=== PATIENT | male | born 1945 | race Caucasian/White ===

== ENCOUNTER 2019-10-07 18:40 | Emergency (ER) | payer MEDICARE, SELFPAY ==
--- NOTE | 2019-10-07 18:43 | ED_ITS ---
Entered by Joya Wong, acting as scribe for Yosef Glass MD HPI - Chest Pain General: Chief Complaint: Chest Pain Stated Complaint: SVT/ HYPOTENSION Time Seen by Provider: 10/07/19 18:44 Source: patient, EMS and RN notes reviewed Mode of arrival: EMS Limitations: no limitations History of Present Illness: HPI narrative: 74 yo male presents to ED with c omplaints of heart palpatations and chest discomfort. The patient said his blood pressure has been running low today (100's/60's) and his pulse has been 160-170. Associated symptoms: Reports palpitations; Deny abdominal pain, dyspnea, fever(s), nausea or vomiting Review of Systems Const: Denies: fever, chills, body aches or change in appetite Eyes: Denies: blurry vision or eye discomfort ENMT: Denies: throat pain or dental pain Card: Reports: palpitations; Denies: chest pain Resp: Denies: shortness of breath GI: Denies: abdominal pain, nausea, vomiting or diarrhea : Denies: painful urination Musc: Denies: neck pain or back pain Skin/Breast: Denies: rash Neuro: Denies: headache Psych: Denies: depression Raphael/Lymph: Denies: easy bruising All/Imm: Denies: hives PFSH ED PFSH: Social History Smoking and tobacco status: former smoker Physical Exam Const: COMMON NORMALS: no apparent distress, oriented x3 and healthy appearing HENMT: COMMON NORMALS: normocephalic and head/scalp atraumatic HEAD & SCALP: normocephalic and atraumatic Eye: COMMON NORMALS: PERRL and EOMs intact bilaterally PUPIL: Yes PERRL Neck/C-Spine: COMMON NORMALS: full ROM and supple Chest: COMMONS NORMALS: inspection of chest normal and palpation of chest normal Resp: COMMON NORMALS: normal respiratory effort, no retractions, no use of accessory muscles and clear to auscultation bilaterally AUSCULTATION: clear to auscultation bilaterally Cardio: COMMON NORMALS: regular rate, regular rhythm and no murmurs RATE: regular rate RHYTHM: regular rhythm GI: COMMON NORMALS: normal to inspection, nondistended, normoactive bowel sounds, soft to palpation, non-tender and no masses PALPATION: Yes soft Extremity: COMMON NORMALS: normal to inspection and full ROM Neuro: COMMON NORMALS: oriented x3, moves all extremities and no focal motor deficits Psych: COMMON NORMALS: mental status grossly normal, thought process normal and cooperative THOUGHT PROCESS: normal thought process Skin: COMMON NORMALS: no rashes or lesions noted and no wounds GENERAL SKIN EXAM: no rashes or lesions noted Course Vital Signs: Vital signs: Vital Signs Temperature 97.5 F L 10/07/19 18:44 Pulse Rate 92 10/07/19 19:10 Respiratory Rate 14 10/07/19 19:10 Blood Pressure 149/91 10/07/19 19:10 Pulse Oximetry 97 10/07/19 19:10 MDM - Chest Pain MDM Narrative: Medical decision making narrative: Patient presents here with SVT was converted on the way here. Patient observed here and he is been in normal sinus rhythm. Patient feels much improved and is well-appearing. Patient's lab work here is normal. Patient is stable for discharge and is to follow-up with primary care doctor in 3 to 5 days return if worsening. Lab Data: Labs: Lab Results 10/07/19 10/07/19 Range/Units 18:50 18:50 WBC 6.9 (4.0-10.0) 10^3/ uL RBC 4.34 (4.1-5.3) 10^6/u L Hgb 12.9 (11.7-16.6) g/dL Hct 39.8 L (42.0-52.0) % MCV 91.7 (80-94) fL MCH 29.7 (28.0-34.0) pg MCHC 32.4 (30.0-36.0) g/dL RDW 11.6 L (12.1-15.1) % Plt Count 283 (130-400) 10^3/c mm MPV 9.0 (7.4-10.4) fL Neut % (Auto) 71.5 % Lymph % (Auto) 15.2 % Dickinson % (Auto) 10.1 % Eos % (Auto) 2.8 % Baso % (Auto) 0.3 % Neut # (Auto) 4.9 (1.8-7.7) 10^3/u L Lymph # (Auto) 1.0 (0.8-4.8) 10^3/u L Dickinson # (Auto) 0.7 (0.2-0.9) 10^3/u L Eos # (Auto) 0.2 (0.0-0.8) 10^3/u L Baso # (Auto) 0.0 (0.0-0.1) 10^3/u L Nucleated RBC % (a uto) 0 % Nucleated RBCs # 0.0 /100WBC Sodium 137 (136-145) mmol/L Potassium 4.2 (3.5-5.1) mmol/L Chloride 100 (98-107) mmol/L Carbon Dioxide 24 (22-29) mmol/L Anion Gap 17.2 (5-19) BUN 20 (8-23) mg/dL Creatinine 1.1 (0.7-1.2) mg/dL Glucose 105 (65-115) mg/dL Calculated Osmolal ity 281 L (285-295) mOsm/k g Calcium 9.3 (8.5-10.5) mg/dL EKG Data^: EKG 1: Attestation: I personally reviewed and interpreted this EKG as follows: EKG interpretation date: 10/07/19 EKG interpretation time: 18:53 Interpretation: nsr hr [address] or t wave abnormalities qrs 74 qtc 395 Discharge Plan Discharge Patient Disposition: Home, Self-Care Clinical Impression: SVT (supraventricular tachycardia) Condition: Stable Prescriptions: No Action trazodone 50 mg tablet 50 mg PO BEDTIME RF: 0 sertraline 100 mg Tablet 100 mg PO DAILY RF: 0 pantoprazole 20 mg tablet,delayed release (DR/EC) 20 mg PO BID RF: 0 carbidopa-levodopa 25-100 mg tablet 1 tab PO DAILY RF: 0 Mi-Acid Gas Relief(simethicon) 80 mg Tablet,Chewable 80 mg PO DAILY PRN (Reason: UNKOWN) RF: 0 albuterol sulfate 90 mcg/actuation Hfa Aerosol Inhaler 2 puff INHALATION 6XD PRN (Reason: Shortness Of Breath) RF: 0 Discharge Orders: Discharge Order (Routine); Ordered 10/07/19 Ordered By: Yosef Glass Referrals: Blayne Hinojosa DO [Primary Care Provider] - 4-7 days Discharge Diet: Advance as tolerated Discharge Activity: Resume usual activity Patient Instructions: Supraventricular Tachycardia (ED) Coding Level of Care Code ED Wall Man for Chg Fwd Exam Comprehensive The documentation recorded by the Marvin trujillo Valerie R, accurately reflects the service I personally performed and the decisions made by me, Yosef Glass MD
--- NOTE | 2019-10-07 18:43 | ECG_ITS ---
Measurements Intervals [place] Rate: 85 P: 43 OK: 222 QRS: 19 QRSD: 74 T: 46 QT: 353 QTc: 420 SINUS RHYTHM WITH FIRST DEGREE AV BLOCK Compared to ECG 07/17/2019 21:31:24 First degree AV block now present Electronically Signed On 10-08-2019 7:48:36 GREENHOUSE TECHNICIAN by Esthela Raphael M.D. [email or web address]
[2019-10-07 18:44] VITALS: BP 147/90; PULSE 96; RESP 18; TEMP 36.4; O2SAT 95; BMI 20.7
[2019-10-07 18:56] VITALS: O2SAT 94
[2019-10-07 19:00] LABS: Basophils % 0.3 %; Eosinophils # 0.2 10^3/uL (0.0-0.8); Eosinophils % 2.8 %; Hematocrit 39.8 % (42.0-52.0); Hemoglobin 12.9 g/dL (11.7-16.6); Lymphocytes % 15.2 %; Mean Corpuscular HGB Conc 32.4 g/dL (30.0-36.0); Mean Corpuscular Hemoglobin 29.7 pg (28.0-34.0); Mean Corpuscular Volume 91.7 fL (80-94); Monocytes # 0.7 10^3/uL (0.2-0.9); Monocytes % 10.1 %; Neutrophils # 4.9 10^3/uL (1.8-7.7); Neutrophils % 71.5 %; Nucleated Red Blood Cells % 0 %; Platelet Count 283 10^3/cmm (130-400); Red Blood Count 4.34 10^6/uL (4.1-5.3); Red Cell Distribution Width 11.6 % (12.1-15.1); White Blood Count 6.9 10^3/uL (4.0-10.0)
--- NOTE | 2019-10-07 19:09 | PC.NURSE ---
Report received from JEAN-PAUL Lizarraga and care transferred to JEAN-PAUL Voss
[2019-10-07 19:10] VITALS: BP 149/91; PULSE 92; RESP 14; O2SAT 97
--- NOTE | 2019-10-07 19:17 | XRR_ITS ---
PROCEDURE INFORMATION: Exam: XR Chest, 1 View Exam date and time: 10/07/2019 7:18 PM Age: 74 years old Clinical indication: Other: Increased hr; Chest pain; Additional info: Cp TECHNIQUE: Imaging protocol: XR of the chest Views: 1 view. COMPARISON: CR Chest 1 [place] [id number] 07/17/2019 3:54 PM FINDINGS: Lungs: Unremarkable. No consolidation. Pleural space: There is density in the right pleura which is unchanged. No significant pleural effusion or pneumothorax. Heart/Mediastinum: Unremarkable. No cardiomegaly. Bones/joints: Unremarkable. XR/XR chest 1V portable [id number] IMPRESSION: There are no acute concerning abnormalities.
[2019-10-07 19:48] LABS: Anion Gap 17.2 (5-19); Blood Urea Nitrogen 20 mg/dL (8-23); Calcium 9.3 mg/dL (8.5-10.5); Carbon Dioxide 24 mmol/L (22-29); Chloride 100 mmol/L (98-107); Creatinine Clr Calc Pharmacy 56.5177; Glucose 105 mg/dL (65-115); Osmolality Calculated 281 mOsm/kg (285-295); Potassium 4.2 mmol/L (3.5-5.1); Sodium 137 mmol/L (136-145)
--- NOTE | 2019-10-07 20:11 | PC.PHAR ---
PT'S STATED THAT HE ALSO TAKES A BLOOD PRESSURE MEDICATION, BUT SHE DIDN'T BRING IT, AND IT WAS NOT ON HER MEDICATION LIST. [facility] BUT I HAVEN'T BEEN ABLE TO GET ONE FROM THEM YET.
[2019-10-07 20:15] VITALS: BP 149/91; PULSE 98; RESP 18; O2SAT 98
== END 2019-10-07 20:24 | disposition home or self-care (01) ==
PROVIDERS: Emergency Provider Emergency Medicine; Family Provider Family Medicine; PCP Family Medicine
DX: I47.1 Supraventricular tachycardia (principal); Z87.891 Personal history of nicotine dependence
CPT/HCPCS: 36415; 71045; 80048; 85025; 93005; 99283; 99284

== ENCOUNTER 2019-11-21 12:03 | Observation (INO) | payer OTHER, MEDICARE, SELFPAY ==
[2019-11-21 12:05] VITALS: BP 176/102; PULSE 82; RESP 18; TEMP 36.4; O2SAT 97
[2019-11-21 12:07] VITALS: BMI 22.9
--- NOTE | 2019-11-21 12:30 | ED_ITS ---
HPI - Altered Mental Status General: Chief Complaint: Altered Mental Status Stated Complaint: N/V WITH SUDDEN ONSET CONFUSION Time Seen by Provider: 11/21/19 12:12 History of Present Illness: HPI narrative: 74-year-old male presents via EMS altered mental status and nausea vomiting he states he got dizzy and began vomiting started about an hour prior to arrival. He denies headache or chest pain he said no difficulty with speech vision or swallowing he describes the symptoms as vertiginous like the world is spinning around him said he had a similar episode about 2 months ago. Review of Systems Const: Denies: fever, chills, body aches, change in appetite, fatigue or malaise ENMT: Denies: throat pain, ear pain, nasal discharge or nasal congestion Card: Denies: chest pain, edema, shortness of breath on exertion or shortness of breath when lying down Resp: Denies: shortness of breath, productive cough or non-productive cough GI: Denies: abdominal pain, nausea, vomiting, vomiting blood, coffee grounds in vomit, diarrhea, constipation, bloating, blood in stool or black tarry stool : Denies: flank pain, painful urination, urinary frequency or urinary urgency Skin/Breast: Denies: rash or itching PFSH ED PFSH: Medical History (Updated 11/22/19 @ 13:13 by Victor M Moreno DO) Coronary artery disease Parkinson disease Surgical History (Updated 11/21/19 @ 12:39 by Victor M Moreno DO) Status post percutaneous transluminal angioplasty ([employer]) with stent placement Social History Smoking and tobacco status: former smoker Physical Exam Const: COMMON NORMALS: average body habitus GENERAL APPEARANCE: cooperative, comfortable, well kempt and well developed HENMT: COMMON NORMALS: normocephalic, head/scalp atraumatic, EAC's normal, TM's normal bilaterally, external nose normal, moist oral mucous membranes and oropharynx normal HEAD & SCALP: normocephalic and atraumatic NOSE: external nose normal EXTERNAL AUDITORY CANAL: EAC's normal TYMPANIC MEMBRANE: TM's normal bilaterally MOUTH: oral and palatal mucosa normal, lip normal and tongue normal THROAT: posterior oropharynx normal and tonsils normal Eye: COMMON NORMALS: PERRL, EOMs intact bilaterally, conjunctivae normal and no scleral icterus CONJUNCTIVA: Yes conjunctivae normal PUPIL: Yes PERRL Neck/C-Spine: COMMON NORMALS: full ROM, no lymphadenopathy, supple, no meningeal signs and thyroid normal THYROID: thyroid normal and asymmetrical Lymph: LYMPHATIC: no lymphadenopathy noted Resp: COMMON NORMALS: normal respiratory effort, no retractions, no use of accessory muscles and clear to auscultation bilaterally AUSCULTATION: clear to auscultation bilaterally Cardio: COMMON NORMALS: regular rate and regular rhythm RATE: regular rate RHYTHM: regular rhythm HEART SOUNDS: no murmurs GI: COMMON NORMALS: normal to inspection, nondistended, normoactive bowel sounds, soft to palpation and no hepatosplenomegaly PALPATION: Yes soft and Yes no hepatosplenomegaly : COMMON NORMALS: Yes no CVA tenderness BLADDER/KIDNEY EXAM: Yes no CVA tenderness Back/Pelvis: COMMON NORMALS: no CVA tenderness LUMBAR SPINE/LOWER BACK: Yes normal to inspection Extremity: COMMON NORMALS: no clubbing, cyanosis or edema, no calf tenderness and no pedal edema Neuro: MENINGEAL SIGNS: Yes no meningeal signs Psych: APPEARANCE: Yes well kempt Skin: COMMON NORMALS: no rashes or lesions noted and skin turgor normal GENERAL SKIN EXAM: no rashes or lesions noted and turgor normal Course Vital Signs: Vital signs: Vital Signs Temperature 98.1 F 11/22/19 11:26 Pulse Rate 69 11/22/19 11:26 Respiratory Rate 18 11/22/19 11:26 Blood Pressure 125/63 11/22/19 11:26 Pulse Oximetry 94 11/22/19 11:26 MDM - Altered Mental Status MDM Narrative: Medical decision making narrative: Is unremarkable patient sudden onset of dizziness now with persistent vertiginous symptoms. He does have Parkinson's. Medications have not improved symptoms particularly made him antiemetics other medications to help with vertigo as well as IV fluids may need further evaluation including advanced imaging. Chest x-ray read as possible developing pneumonia clinically with no evidence this point we will not start him on Lab Data: Labs: Lab Results 11/21/19 11/21/19 11/21/19 Range/Units 13:20 13:20 13:50 WBC 11.9 H (4.0-10.0) 10^3/ uL RBC 4.49 (4.1-5.3) 10^6/u L Hgb 13.6 (11.7-16.6) g/dL Hct 42.0 (42.0-52.0) % MCV 93.5 (80-94) fL MCH 30.3 (28.0-34.0) pg MCHC 32.4 (30.0-36.0) g/dL RDW 11.8 L (12.1-15.1) % Plt Count 248 (130-400) 10^3/c mm MPV 8.9 (7.4-10.4) fL Neut % (Auto) 88.6 % Lymph % (Auto) 5.1 % Dillon % (Auto) 4.9 % Eos % (Auto) 0.5 % Baso % (Auto) 0.3 % Neut # (Auto) 10.6 H (1.8-7.7) 10^3/u L Lymph # (Auto) 0.6 L (0.8-4.8) 10^3/u L Dillon # (Auto) 0.6 (0.2-0.9) 10^3/u L Eos # (Auto) 0.1 (0.0-0.8) 10^3/u L Baso # (Auto) 0.0 (0.0-0.1) 10^3/u L Nucleated RBC % (a uto) 0 % Nucleated RBCs # 0.0 /100WBC Sodium 138 (136-145) mmol/L Potassium 4.5 (3.5-5.1) mmol/L Chloride 102 (98-107) mmol/L Carbon Dioxide 24 (22-29) mmol/L Anion Gap 16.5 (5-19) BUN 22 (8-23) mg/dL Creatinine 0.9 (0.7-1.2) mg/dL Glucose 181 H (65-115) mg/dL Calculated Osmolal ity 287 (285-295) mOsm/k g Calcium 9.4 (8.5-10.5) mg/dL Total Bilirubin 0.3 (0.15-1.2) mg/dL AST 19 (0-40) U/L ALT < 5 (0-41) U/L Alkaline Phosphata se 69 (40-130) IU/L Total Protein 6.7 (6.6-8.7) g/dL Albumin 4.1 (3.5-5.2) g/dL Globulin 2.6 (1.3-4.6) g/dL Urine Color Yellow (Yellow) Urine Appearance Clear (CLEAR) Urine pH 5 (5-7) Ur Specific Gravit y 1.020 (1.005-1.030) Urine Protein Neg (Negative) Urine Glucose (UA) Norm (Normal) Urine Ketones Negative (Negative) Urine Blood Neg (Negative) Urine Nitrate Negative (Negative) Urine Bilirubin Neg (NEGATIVE) Urine Urobilinogen Norm (Negative) mg/dL Ur Leukocyte [place] ase Negative (Negative) Discharge Plan Discharge Patient Disposition: Admitted As Inpatient Admit Provider: Marcus Mortensen Clinical Impression: Vertigo, Delirium due to general medical condition, Parkinson disease Condition: Stable Interventions: ED Discharge Assessment Last Done: 11/21/19 16:25 Discharge Date/Time: 11/21/19 16:28 Coding Level of Care Code ED Humanities Coordinator for Rodrigo Fwd Exam Comprehensive
--- NOTE | 2019-11-21 12:40 | CT_ITS ---
WS: [id number] CT HEAD NONCONTRAST HISTORY: AMS, vertigo TECHNIQUE: Contiguous axial imaging performed through the brain in 2.5 mm imaging. Bone and soft tiss ue windows. Sagittal and coronal reformats reviewed. All CT scans at [facility] use at le ast one of these dose optimization techniques: automated exposure control; mA and/or kV adjustment pe r patient size (includes targeted exams where dose is matched to clinical indication); or iterative r econstruction. DLP: 571.05 mGy.cm COMPARISON: 07/12/2019 No acute intracranial hemorrhage, midline shift or mass effect. Moderate atrophy with mild chronic microvascular ischemic changes. There are small hypodensities in t he basal ganglia bilaterally. Largest lacunar infarct in the LEFT internal capsule. Ventricles: Ventricles are slightly dilated and rounded, slightly more than expected for the patient 's atrophy. Similar to the prior study. No transependymal edema is identified. Paranasal sinuses: Mild mucoperiosteal thickening in the ethmoid air cells. Mucoperiosteal thickening with increased density in the RIGHT sphenoid sinus. This has progressed since the prior examination. Mastoid air cells: Coalescence of LEFT mastoid air cells. Calvarium and scalp: Skull is intact with no soft tissue edema or swelling. CT/CT head wo con* [id number] IMPRESSION: 1. No acute intracranial hemorrhage or edema. 2. Moderate atrophy with chronic microvascular ischemic disease and bilateral lacunar infarcts which are stable. 3. Ventricles are slightly upper portion to the amount of atrophy. Consider no rmal pressure hydrocephalus. 4. Increased density in the RIGHT sphenoid sinus disease. Likely inspissated s ecretions, fungal sinusitis within the differential but less likely.
--- NOTE | 2019-11-21 12:40 | XR_ITS ---
WS: [id number] PORTABLE CHEST HISTORY: dyspnea/cough COMPARISON: 10/07/2019 Increased density over the mid and lower RIGHT thorax is pleural plaque. There is mild volume loss in the RIGHT thorax. Slight increased amount of interstitial thickening and stranding in the RIGHT lowe r lung field. LEFT lung is clear. No pleural effusion or pneumothorax. Cardiac size: Normal. Mediastinum/Aorta: Mild atherosclerosis aorta. Osteopenia. Prior LEFT rotator cuff repair. XR/XR chest 1V portable [id number] IMPRESSION: 1. Slight increase in interstitial thickening and stranding in the RIGHT lower lobe. Probably due to developing pneumonia or pneumonitis. 2. Stable RIGHT pleural plaque.
[2019-11-21 13:32] VITALS: BP 157/81; PULSE 61; RESP 16; O2SAT 94
[2019-11-21 13:33] LABS: Basophils % 0.3 %; Eosinophils # 0.1 10^3/uL (0.0-0.8); Eosinophils % 0.5 %; Hemoglobin 13.6 g/dL (11.7-16.6); Lymphocytes # 0.6 10^3/uL (0.8-4.8); Lymphocytes % 5.1 %; Mean Corpuscular HGB Conc 32.4 g/dL (30.0-36.0); Mean Corpuscular Hemoglobin 30.3 pg (28.0-34.0); Mean Corpuscular Volume 93.5 fL (80-94); Mean Platelet Volume 8.9 fL (7.4-10.4); Monocytes # 0.6 10^3/uL (0.2-0.9); Monocytes % 4.9 %; Neutrophils # 10.6 10^3/uL (1.8-7.7); Neutrophils % 88.6 %; Nucleated Red Blood Cells % 0 %; Platelet Count 248 10^3/cmm (130-400); Red Blood Count 4.49 10^6/uL (4.1-5.3); Red Cell Distribution Width 11.8 % (12.1-15.1); White Blood Count 11.9 10^3/uL (4.0-10.0)
[2019-11-21] MEDS: LORazepam 2 mg/mL INJ 1 mL 1 MG IVP (13:38)
[2019-11-21 13:44] LABS: Alanine Aminotransferase < 5 U/L (0-41); Albumin Level 4.1 g/dL (3.5-5.2); Alkaline Phosphatase 69 IU/L (40-130); Anion Gap 16.5 (5-19); Aspartate Amino Transferase 19 U/L (0-40); Blood Urea Nitrogen 22 mg/dL (8-23); Calcium 9.4 mg/dL (8.5-10.5); Carbon Dioxide 24 mmol/L (22-29); Chloride 102 mmol/L (98-107); Globulin 2.6 g/dL (1.3-4.6); Glucose 181 mg/dL (65-115); Osmolality Calculated 287 mOsm/kg (285-295); Potassium 4.5 mmol/L (3.5-5.1); Sodium 138 mmol/L (136-145); Total Bilirubin 0.3 mg/dL (0.15-1.2); Total Protein 6.7 g/dL (6.6-8.7)
[2019-11-21 14:12] VITALS: BP 158/94; PULSE 68; RESP 18; O2SAT 97
[2019-11-21 14:13] LABS: Add Urine Microscopic? NO
[2019-11-21 14:38] LABS: Bilirubin Urine Neg (NEGATIVE); Blood Urine Neg (Negative); Glucose Urine UA Norm (Normal); Ketones Urine Negative (Negative); Leukocyte Esterase Urine Negative (Negative); Nitrate Urine Negative (Negative); Protein Urine Neg (Negative); Urine Appearance Clear (CLEAR); Urine Color Yellow (Yellow); Urobilinogen Urine Norm (Negative); pH Urine 5 (5-7)
[2019-11-21] MEDS: promethazine 25 mg/mL SDV 1 mL 12.5 MG IM (14:53)
[2019-11-21 15:00] VITALS: BP 158/94; PULSE 71; RESP 16; O2SAT 95
--- NOTE | 2019-11-21 16:21 | PC.NURSE ---
pt. had a BM he was cleaned and diper replaced
[2019-11-21 16:49] VITALS: BP 169/85; PULSE 87; RESP 22; TEMP 36.4; O2SAT 95
[2019-11-21] MEDS: sodium chloride 0.9% 1,000 ML 100 ML IV (17:46)
--- NOTE | 2019-11-21 19:06 | PM.HP ---
Providers/Chief Complaint Admitting Physician: Marcus Mortensen Primary Care Provider: Blayne Hinojosa DO Chief Complaint: N/V WITH SUDDEN ONSET CONFUSION History of Present Illness Meir Hopson is a 74 year old male with past medical history of parkinsonism and cognitive changes according to patient's daughter. I collected the history mostly from the daughter over the phone. According to her the symptoms started several days ago and progressively got worse. The patient had several episodes of vomiting due to uncontrolled dizziness and vertigo. No headache, abdominal pain, chest pain, shortness of breath, cough, palpitations. No focal dizziness or lightheadedness. The patient has associated confusion. No focal muscle weaknesses or sensory loss. No problems with speech. The daughter reports similar presentation several years ago. At the time of work-up was not complete because the patient was unable to tolerate closed MRI. He also did not follow-up as instructed with his neurologist Dr. Rendon. Review of Systems General: Reports: 10 or more systems reviewed and unremarkable except in HPI and below Medications/Allergies Home Medications Medication Instructions Recorded Confirmed Last Taken Type metoprolol tartrate 12.5 mg PO DAILY 11/21/19 11/21/19 11/21/19 History simethicone [Gas Relief Extra 125 mg PO TID PRN 11/21/19 11/21/19 11/21/19 History Strength] Allergies Allergy/AdvReac Type Severity Reaction Status Date / Time No Known Allergies Allergy Verified 11/21/19 12:11 Additional Medication Information Additional Medication Information: The medications are reviewed. Please see the med rec. PFSH Acute PFSH: Medical History (Updated 11/21/19 @ 12:39 by Victor M Moreno DO) Coronary artery disease Parkinson disease Surgical History (Updated 11/21/19 @ 12:39 by Victor M Moreno DO) Status post percutaneous transluminal angioplasty ([employer]) with stent placement Social History Smoking and tobacco status: former smoker Vitals/I&O/Wt Last Vital Signs Temp 97.5 F L 11/21/19 16:49 Pulse 87 11/21/19 16:49 Resp 22 H 11/21/19 16:49 BP 169/85 11/21/19 16:49 Pulse Ox 95 11/21/19 16:49 11/21/19 11/21/19 11/21/19 06:59 14:59 22:59 Intake Total 240 / 240 Balance 240 / 240 Weight last 48 hrs Weight 72.575 kg Physical Exam Narrative: EXAM NARRATIVE: The patient is confused and seems to be forgetful. He is unable to provide significant history. No acute distress. Upper extremity tremors are present. Skin is warm and dry. Dry mucous membranes. Eyes Chelita, extraocular muscles seem to be intact. No facial asymmetry. Cranial nerves II through XII seem to be grossly intact. No gross dysarthria or aphasia. He moves all his extremities. However more detailed exam is impossible because the patient does not follow all my instructions. Heart S1, S2, regular Abdomen soft, nontender, bowel sounds are present Lungs decreased breath sounds bibasilarly. No wheezes or crackles. No respiratory distress Neck is supple. No JVD. Midline trachea. Extremities trace edema. No cyanosis no calf tenderness bilaterally. Urinary Catheter Management^: Ramirez: Cath Placed During This Visit: yes Urinary Catheter Date of Insertion: 11/21/19 Urinary Catheter Time of Insertion: 13:50 Data : 11/21/19 13:20 11/21/19 13:20 CT Head: Radiologist's impression: CT head revealed no acute changes. Questionable sinus disease. Possible normal pressure hydrocephalus. A&P Additional A&P Information 74-year-old gentleman with past medical history of probably advanced Parkinson's disease with cognitive changes who presents with dizziness, vomiting, and confusion. I am not sure what exactly is causing his symptoms. He does not have evidence of infection currently. I will order MRI, open if possible. We will use Zofran and meclizine for his symptoms. Will consider neurology consultation tomorrow. We will also see whether there is any more information regarding possible NPH and sinus disease. I will also order PT OT eval and treat. We will ask the family preservation caseworker to help with possible discharge needs. Dehydration, secondary to vomiting. He will receive gentle hydration. Will reassess it in the morning. We will continue hydration if his symptoms continue. Questionable pneumonia. I will order calcitonin. No antibiotics at this time. DVT prophylaxis. Lovenox. GI prophylaxis. He will continue receiving his home PPI. Hypertension. I will order as needed hydralazine. The patient is full code according to his daughter. The plan of care was discussed with the patient's daughter. She verbalized understanding and agreement. Attestations Medical Necessity Statement*: The patient is being admitted for observation. Coding Level of Care Code Acute Manometer Technician for Rodrigo Calix
[2019-11-21] MEDS: enoxaparin 40 mg/0.4 mL Syringe SUBCUT (19:17)
[2019-11-21 20:00] VITALS: BP 146/88; PULSE 103; RESP 18; TEMP 36.2; O2SAT 96
[2019-11-21] MEDS: trazodone 50 mg Tablet PO (20:14)
[2019-11-21 22:10] LABS: Procalcitonin 0.16 ng/mL (0-0.5)
[2019-11-22] VITALS (9 sets, daily range): BP systolic 109–136; BP diastolic 63–82; PULSE 69–95; RESP 17–18; TEMP 36.6–37.7; O2SAT 93–96
[2019-11-22] MEDS: sodium chloride 0.9% 1,000 ML 75 ML IV (04:50)
[2019-11-22 05:41] LABS: Basophils % 0.2 %; Eosinophils # 0.1 10^3/uL (0.0-0.8); Eosinophils % 1.3 %; Hematocrit 38.1 % (42.0-52.0); Hemoglobin 12.9 g/dL (11.7-16.6); Lymphocytes # 1.1 10^3/uL (0.8-4.8); Lymphocytes % 11.5 %; Mean Corpuscular HGB Conc 33.9 g/dL (30.0-36.0); Mean Corpuscular Volume 91.6 fL (80-94); Mean Platelet Volume 8.8 fL (7.4-10.4); Monocytes # 0.9 10^3/uL (0.2-0.9); Monocytes % 10.3 %; Neutrophils % 76.4 %; Nucleated Red Blood Cells % 0 %; Platelet Count 238 10^3/cmm (130-400); Red Blood Count 4.16 10^6/uL (4.1-5.3); Red Cell Distribution Width 11.9 % (12.1-15.1); White Blood Count 9.2 10^3/uL (4.0-10.0)
[2019-11-22 05:58] LABS: Magnesium 1.9 mg/dL (1.7-2.3)
[2019-11-22 06:02] LABS: Anion Gap 15.9 (5-19); Blood Urea Nitrogen 20 mg/dL (8-23); Calcium 9.6 mg/dL (8.5-10.5); Carbon Dioxide 25 mmol/L (22-29); Chloride 103 mmol/L (98-107); Glucose 116 mg/dL (65-115); Osmolality Calculated 288 mOsm/kg (285-295); Potassium 3.9 mmol/L (3.5-5.1); Sodium 140 mmol/L (136-145)
[2019-11-22] MEDS: pantoprazole DR 40 mg Tablet PO (08:05)
[2019-11-22] MEDS: sertraline 100 mg Tablet PO (08:05)
[2019-11-22] MEDS: metoprolol tartrate 25 mg Tablet 12.5 MG PO (08:05)
[2019-11-22] MEDS: carbidopa-levodopa 25-100mg Tablet 1 EACH PO ×2 (08:05→17:19)
--- NOTE | 2019-11-22 12:16 | PC.CHAP ---
Pastoral Care Encounter/Spiritual Assessment Type of Contact [] Declined sample display preparer visit [] Patient/Family/Request visit [] Outpatient visit [] Follow-up visit [] Physician referral [] Code/Alert [x] Routine visit [] Staff referral [] Actively dying [] Patient sleeping [] Family support [] [] Out of room [] Palliative care [] [] Receiving care in room [] Pre-surgical visit [] Trauma [] Long length of stay [] ICU visit [] Other: Relational/Emotional Strength [] Patient feels connected with others/family/visitors/staff [] Distress [] Loneliness/isolation [] Abandonment Spirituality of Patient [] Person of Kat [] Attends Bahai of their Kat [] Believes in Prayer [] Reads Bible or Buddhism materials [] There are Spiritual issues to be addressed Superintendent Measurement Interventions [x Prayer [] Active listening [] Non-anxious presence [] Spiritual/emotional support [] Crisis/trauma care [] Spiritual counseling [] Bereavement support [] Provided bereavement packet [] Provided Bible/devotional materials [] Provided toy/stuffed animal, coloring book to patient or family member [] Provided Communion [] Anointing/[place] [] Salvation [x] Completed spiritual assessment [] Other: Impact on Illness or Injury [] Angry [] Fearful [] Anxious [] Often cries [] Exhaustion [] Unable to work [] Unable to attend congregation [] Unable to walk/stand [] Unable to read [] Unable to drive [] Unable to eat/drink [] Unable to sleep [] Unable to be with family [] Patient intubated [] Other: Summary Patient not responding to questions. Can't tell if he can't hear, or doesn't understand. Tried to help him with lunch- Shana requested nurse to assist him with lunch. Time spent with patient 10 min
--- NOTE | 2019-11-22 15:25 | PM.PN ---
Subjective Subjective: Interval history: The patient is more awake and alert today. Minimally verbal. Denies any active complaints. Reports feeling better. No acute distress. He also denies any dizziness or vertigo. Medications: Reviewed: Yes Vitals/I&O/Wt Last Vital Signs Temp 98.1 F 11/22/19 11:26 Pulse 69 11/22/19 11:26 Resp 18 11/22/19 11:26 BP 125/63 11/22/19 11:26 Pulse Ox 94 11/22/19 11:26 11/22/19 11/22/19 11/22/19 06:59 14:59 22:59 Intake Total 1000 / 1480 460 / 460 Output Total 700 / 700 Balance 300 / 780 460 / 460 Weight last 48 hrs Weight 72.575 kg Physical Exam Narrative: EXAM NARRATIVE: The patient is less confusedl. He is unable to provide significant history. No acute distress. Upper extremity tremors are present. Skin is warm and dry. Dry mucous membranes. Eyes Chelita, extraocular muscles seem to be intact. No facial asymmetry. Cranial nerves II through XII seem to be grossly intact. No gross dysarthria or aphasia. Scant speech. He moves all his extremities. However more detailed exam is impossible because the patient does not follow all my instructions. Heart S1, S2, regular Abdomen soft, nontender, bowel sounds are present Lungs decreased breath sounds bibasilarly. No wheezes or crackles. No respiratory distress Neck is supple. No JVD. Midline trachea. Extremities trace edema. No cyanosis no calf tenderness bilaterally. 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 I am not sure what exactly was causing his symptoms. Family refused MRI at this time. Improved significantly since yesterday. Currently at his baseline. I discussed with Dr. Rendon on the phone. She is on vacation and cannot see the patient personally. However this discussion was very helpful in understanding the patient's presentation. It seems to be recurrent problem most likely related to advancing parkinsonism. He does not have evidence of infection currently. Dr. Rendon will see the patient after discharge if the patient follows instructions at discharge. Previously he was noncompliant with discharge instructions. Additional testing will be considered by Dr. Rendon. We will use Zofran and meclizine for his symptoms if needed. PT OT eval and treat. copy and print associate are in contact with family regarding his discharge needs. Placement is being considered versus going home with increased home health care and private caregiver help. Dehydration, secondary to vomiting. He received gentle hydration. Currently stable. Questionable pneumonia. Normal procalcitonin. No evidence of pneumonia. DVT prophylaxis. Lovenox. GI prophylaxis. He will continue receiving his home PPI. Hypertension. as needed hydralazine. The patient is full code according to his daughter. Attestations Medical Necessity Statement*: Patient is improving. However requires another night in the hospital for finalization of his discharge needs. We also need to make sure that he remains stable and will not need to come back after discharge. Coding Level of Care Code Acute Costume Maker for Rodrigo Calix
[2019-11-22] MEDS: enoxaparin 40 mg/0.4 mL Syringe SUBCUT (17:19)
[2019-11-22] MEDS: trazodone 50 mg Tablet PO (21:31)
[2019-11-23] VITALS (8 sets, daily range): BP systolic 104–146; BP diastolic 63–80; PULSE 68–85; RESP 16–18; TEMP 36.4–37; O2SAT 93–96
[2019-11-23] MEDS: carbidopa-levodopa 25-100mg Tablet 1 EACH PO (10:06)
[2019-11-23] MEDS: pantoprazole DR 40 mg Tablet PO (10:06)
[2019-11-23] MEDS: metoprolol tartrate 25 mg Tablet 12.5 MG PO (10:06)
[2019-11-23] MEDS: sertraline 100 mg Tablet PO (10:07)
[2019-11-23] MEDS: albuterol 8 gm MDI 2 PUFF INHALATION ×2 (10:41→16:20)
--- NOTE | 2019-11-23 11:58 | P.DS_ITS ---
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 I am not sure what exactly was causing his symptoms. Family refused MRI at this time. Improved significantly since yesterday. Currently at his baseline. I discussed with Dr. Rendon on the phone. She is on vacation and cannot see the patient personally. However this discussion was very helpful in understanding the patient's presentation. It seems to be a recurrent problem most likely related to advancing parkinsonism. He does not have evidence of infection currently. Dr. Rendon will see the patient after discharge. Previously he was noncompliant with discharge instructions. Additional testing will be considered by Dr. Rendon. We will use meclizine for his symptoms if needed. PT OT eval and treat. He will have home health care and additional help. They will speak with [facility] provider with [facility] about future need for placement. Family was informed about patient's condition and findings. They are aware about his discharge needs and current recommendations. The patient is stable for discharge. He is eager to go home. He denies any active or new complaints today. Dehydration, secondary to vomiting. He received gentle hydration. Currently stable. Questionable pneumonia. Normal procalcitonin. No evidence of pneumonia. DVT prophylaxis. Received Lovenox. GI prophylaxis. He will continue receiving his home PPI. Hypertension. Stable. The patient is full code according to his daughter. Physical Exam Narrative: EXAM NARRATIVE: The patient is less confusedl. No acute distress. No tremors. Skin is warm and dry. Moist mucous membranes. Eyes Perrl, extraocular muscles seem to be intact. No facial asymmetry. Cranial nerves II through XII seem to be grossly intact. No gross dysarthria or aphasia. Scant speech. He moves all his extremities. Heart S1, S2, regular Abdomen soft, nontender, bowel sounds are present Lungs decreased breath sounds bibasilarly. No wheezes or crackles. No respiratory distress Neck is supple. No JVD. Midline trachea. Extremities trace edema. No cyanosis no calf tenderness bilaterally. No tremors. Vital signs are reviewed and are stable. Urinary Catheter Management^: Ramirez: Cath Placed During This Visit: yes Reason for Continuing Indwelling Catheter: Chronic Indwelling Urinary Catheter on Admission Urinary Catheter Date of Insertion: 11/21/19 Urinary Catheter Time of Insertion: 13:50 Discharge Data Data Completed and Pending: Completed Studies During Hospitalization Category Date Time Status CT head wo con* 7 0450 Stat Cat Scan 11/21/19 12:40 Completed XR chest 1V panfilo ble 28819 Stat Exams 11/21/19 12:40 Completed Vitals: Last Vital Signs Temp 98.4 F 11/23/19 11:16 Pulse 85 11/23/19 11:16 Resp 17 11/23/19 11:16 BP 146/63 11/23/19 11:16 Pulse Ox 95 11/23/19 11:16 Discharge Plan Discharge Patient Disposition: Home Health Service Condition: Stable Prescriptions: New meclizine 25 mg Tablet 25 mg PO TID PRN (Reason: Dizziness) Qty: 20 RF: 0 Continued Gas Relief Extra Strength 125 mg Tablet,Chewable 125 mg PO TID PRN (Reason: unknown) RF: 0 metoprolol tartrate 25 mg Tablet 12.5 mg PO DAILY RF: 0 trazodone 50 mg tablet 50 mg PO BEDTIME RF: 0 sertraline 100 mg Tablet 100 mg PO DAILY RF: 0 pantoprazole 20 mg tablet,delayed release (DR/EC) 20 mg PO DAILY RF: 0 carbidopa-levodopa 25-100 mg tablet 1 tab PO BID RF: 0 albuterol sulfate 90 mcg/actuation Hfa Aerosol Inhaler 2 puff INHALATION 6XD PRN (Reason: Shortness Of Breath) RF: 0 Discharge Orders: Discharge Order (Routine); Ordered 11/23/19 Ordered By: Marcus Mortensen Other Ambulatory Orders: DME: Wheelchair (Order) Location: None Selected Ordered By: Marcus Mortensen Referrals: Blayne Hinojosa DO [Primary Care Provider] - 1 week Discharge Diet: Usual diet Discharge Activity: Resume usual activity, Use walker/crutches as instructed and As per PT/OT instructions Patient Instructions: Confusion, Meclizine (By mouth), Vertigo (DC) Activity Restrictions/Additional Instructions: Please follow-up with your primary care physician. Please speak with your primary care physician regarding possibility of nursing home facility placement in the near future. Please return to emergency room if develop any new similar problems or any other health-related complaints. Discharge Attestations Time Spent in Discharge Care*: greater than 30 min Quality Metrics Clinical Quality Measures During this hospital stay, did patient experience: None Coding Level of Care Code Acute Missile Pad Mechanic for Rodrigo Calix
== END 2019-11-23 16:57 | disposition home health service (06) ==
LOC: ER 12:34 → MEDSURG 16:06
PROVIDERS: Admitting Provider Internal Medicine; Emergency Provider Family Medicine; Family Provider Family Medicine; PCP Family Medicine; Visit Provider Internal Medicine
DX: G20 Parkinson's disease (principal); E86.0 Dehydration; I10 Essential (primary) hypertension; I25.10 Atherosclerotic heart disease of native coronary artery without angina pectoris; Z87.891 Personal history of nicotine dependence
CPT/HCPCS: 12345; 36415; 51702; 70450; 71045; 80048; 80053; 81003; 83735; 84145; 85025; 94640; 96360; 96361; 96372; 96374; 97110; 97116; 97162; 97167; 97530; 97535; 99283; 99285; G0378; J1650; J2060; J2550; J7030

== ENCOUNTER 2020-01-26 08:24 | Emergency (ER) | payer MEDICARE, OTHER, SELFPAY ==
[2020-01-26 08:25] VITALS: BMI 20.7
[2020-01-26 08:30] VITALS: BP 114/96; PULSE 69; RESP 13; TEMP 36.6; O2SAT 94
--- NOTE | 2020-01-26 08:32 | CT_ITS ---
WS: [id number] CT head wo con* 07653 REASON FOR EXAM: weakness IV CONTRAST ADMINISTERED: None. TOTAL EXAM DLP: 571.[address] scans at [facility] use at least one of these dose optimization techniques: automat ed exposure control; mA and/or kV adjustment per patient size (includes targeted exams where dose is matched to clinical indication); or iterative reconstruction. FINDINGS: Arteriosclerotic changes of the vertebral basilar arteries are seen. Mild ventriculomegaly changes. A small lacunar infarction is seen along the internal capsule on the l eft. No acute infarctions were seen. There is effacement of the sulci in the parietal temporal and frontal lobes. Carlitos and cerebellum were normal. There is mild vermal atrophy changes. No evidence of hemorrhage, mass effect or macro infarction There is evidence of low-grade sphenoid sinusitis. The remaining paranasal sinuses were normal. The orbits show no abnormalities.. The calvarium was normal. 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 Low-grade sphenoid sinusitis.
--- NOTE | 2020-01-26 08:32 | XR_ITS ---
WS: [id number] XR chest 1V portable [id number] REASON FOR EXAM: weakness FINDINGS: Pleural plaque changes are noted in the right lung base. The overall appearance is similar to the previous exam of November 21, 2019. The heart was not enlarged. There is arteriosclerotic changes in the arch the aorta. Postop changes left shoulder. The remaining lung peng show no definite pneumonia, pleural effusion, pulmonary edema, or mass effe ct. XR/XR chest 1V portable [id number] IMPRESSION: Pleural plaque changes right lung base No definite active infiltrates. Arteriosclerotic changes.
--- NOTE | 2020-01-26 08:34 | ECG_ITS ---
[facility] ED Test Date: 2020-01-26 Pat Name: Meir Hopson Department: Room: Gender: Male Cvor Nurse: : 1945 Requested By: Sonny Wiseman Order Number: [id number] Michael MD: Esthela Raphael M.D. Measurements Intervals [place] Rate: 67 P: 40 HI: 204 QRS: -2 QRSD: 81 T: 35 QT: 391 QTc: 414 Interpretive Statements SINUS RHYTHM Compared to ECG 10/07/2019 18:53:29 First degree AV block no longer present Electronically Signed On 01-26-2020 16:22:47 CDT by Esthela Raphael M.D. [id number]
--- NOTE | 2020-01-26 08:36 | ED_ITS ---
HPI - Fall General: Chief Complaint: Fall Stated Complaint: weakness Time Seen by Provider: 01/26/20 08:32 History of Present Illness: HPI Narrative: Patient reportedly fell this morning. He relates that he was on the floor for slightly less than an hour. Patient states that he did not have a syncopal event but that he just fell. Patient denies any injuries from the fall. complaint: fall Onset (ago): hour(s) Fall from: standing Fall witnessed: no Place fall occurred: home Loss of consciousness: None Prolonged down time: hour(s) (1) Symptoms prior to fall: none Review of Systems General: Reports: 10 or more systems reviewed and unremarkable except in HPI and below PFSH ED PFSH: Medical History Coronary artery disease Parkinson disease Surgical History Status post percutaneous transluminal angioplasty (SUMMER INTERN) with stent placement Social History Smoking and tobacco status: former smoker Physical Exam Const: COMMON NORMALS: no acute distress, average body habitus and well nourished GENERAL APPEARANCE: cooperative, comfortable and well developed HENMT: COMMON NORMALS: normocephalic and atraumatic HEAD & SCALP: normal to inspection, normocephalic and atraumatic Eye: GENERAL EYE: appearance normal, both eyes and all related structures Neck/C-Spine: COMMON NORMALS: full ROM, no lymphadenopathy and no meningeal signs GENERAL: Yes normal visual inspection CERVICAL SPINE: Yes cervical ROM normal and Yes normal cervical lordosis Chest: COMMONS NORMALS: normal inspection of the chest and normal palpation of entire chest wall Resp: COMMON NORMALS: normal respiratory effort, clear to auscultation bilaterally and percussion normal AUSCULTATION: clear to auscultation bilaterally PERCUSSION: percussion normal Cardio: COMMON NORMALS: regular rate, regular rhythm, S1 normal heart sound present and S2 normal heart sound present JUGULAR VENOUS DISTENTION: no JVD PALPATION: normal PMI RATE: regular rate RHYTHM: regular rhythm HEART SOUNDS: S1 normal heart sound present and S2 normal heart sound present GI: COMMON NORMALS: Soft to palpation and No hepatosplenomegaly present INSPECTION: Yes normal to inspection PALPATION: Yes Soft to palpation and Yes No hepatosplenomegaly present PERCUSSION: normal to percussion : COMMON NORMALS: Yes no CVA tenderness BLADDER/KIDNEY EXAM: Yes no CVA tenderness Back/Pelvis: COMMON NORMALS: no CVA tenderness, thoracic and lumbar spine normal to inspection and thoraco-lumbar ROM normal Extremity: COMMON NORMALS: normal to inspection, full ROM and capillary refill normal Neuro: MENINGEAL SIGNS: Yes no meningeal signs Skin: COMMON NORMALS: no rashes or lesions noted, no wounds and turgor normal GENERAL SKIN EXAM: no rashes or lesions noted, elasticity normal and turgor normal LESIONS: no lesions RASHES: no rashes TRAUMA: no lacerations or abrasions HAIR: normal NAILS: normal Course Vital Signs: Vital signs: Vital Signs Temperature 97.8 F 01/26/20 08:30 Pulse Rate 72 01/26/20 10:36 Respiratory Rate 18 01/26/20 10:36 Blood Pressure 129/74 01/26/20 10:36 Pulse Oximetry 95 01/26/20 10:36 MDM - Fall Lab Data: Labs: Lab Results 01/26/20 01/26/20 01/26/20 Range/Units 08:47 08:47 08:47 WBC 8.4 (4.0-10.0) 10^3/ uL RBC 4.72 (4.1-5.3) 10^6/u L Hgb 14.4 (11.7-16.6) g/dL Hct 43.0 (42.0-52.0) % MCV 91.1 (80-94) fL MCH 30.5 (28.0-34.0) pg MCHC 33.5 (30.0-36.0) g/dL RDW 11.9 L (12.1-15.1) % Plt Count 278 (130-400) 10^3/c mm MPV 8.7 (7.4-10.4) fL Neut % (Auto) 76.6 % Lymph % (Auto) 12.4 % [place] % (Auto) 7.3 % Eos % (Auto) 2.1 % Baso % (Auto) 0.6 % Neut # (Auto) 6.4 (1.8-7.7) 10^3/u L Lymph # (Auto) 1.0 (0.8-4.8) 10^3/u L [place] # (Auto) 0.6 (0.2-0.9) 10^3/u L Eos # (Auto) 0.2 (0.0-0.8) 10^3/u L Baso # (Auto) 0.1 (0.0-0.1) 10^3/u L Nucleated RBC % (a uto) 0 % Nucleated RBCs # 0.0 /100WBC Sodium 140 (136-145) mmol/L Potassium 4.5 (3.5-5.1) mmol/L Chloride 100 (98-107) mmol/L Carbon Dioxide 29 (22-29) mmol/L Anion Gap 15.5 (5-19) BUN 16 (8-23) mg/dL Creatinine 1.1 (0.7-1.2) mg/dL Glucose 111 (65-115) mg/dL Calculated Osmolal ity 287 (285-295) mOsm/k g Lactate (0.5-2.2) mmol/L Calcium 9.4 (8.5-10.5) mg/dL Total Bilirubin 0.4 (0.15-1.2) mg/dL AST 22 (0-40) U/L ALT 17 (0-41) U/L Alkaline Phosphata se 73 (40-130) IU/L Creatine Kinase 42 (39-308) U/L Troponin T Baselin e 13 (0-15) ng/L Troponin T 120 Min [place] (0-15) ng/L Delta Troponin T (0-10) ABS# NT-Pro-B Natriuret Pep 44 (0-450) pg/mL Total Protein 6.9 (6.6-8.7) g/dL Albumin 4.3 (3.5-5.2) g/dL Globulin 2.6 (1.3-4.6) g/dL Lipase 46 (13-60) U/L Urine Color (Yellow) Urine Appearance (CLEAR) Urine pH (5-7) Ur Specific Gravit y (1.005-1.030) Urine Protein (Negative) Urine Glucose (UA) (Normal) Urine Ketones (Negative) Urine Blood (Negative) Urine Nitrate (Negative) Urine Bilirubin (NEGATIVE) Urine Urobilinogen (Negative) mg/dL Ur Leukocyte [place] ase (Negative) 01/26/20 01/26/20 01/26/20 Range/Units 08:56 09:32 10:53 WBC (4.0-10.0) 10^3/ uL RBC (4.1-5.3) 10^6/u L Hgb (11.7-16.6) g/dL Hct (42.0-52.0) % MCV (80-94) fL MCH (28.0-34.0) pg MCHC (30.0-36.0) g/dL RDW (12.1-15.1) % Plt Count (130-400) 10^3/c mm MPV (7.4-10.4) fL Neut % (Auto) % Lymph % (Auto) % [place] % (Auto) % Eos % (Auto) % Baso % (Auto) % Neut # (Auto) (1.8-7.7) 10^3/u L Lymph # (Auto) (0.8-4.8) 10^3/u L [place] # (Auto) (0.2-0.9) 10^3/u L Eos # (Auto) (0.0-0.8) 10^3/u L Baso # (Auto) (0.0-0.1) 10^3/u L Nucleated RBC % (a uto) % Nucleated RBCs # /100WBC Sodium (136-145) mmol/L Potassium (3.5-5.1) mmol/L Chloride (98-107) mmol/L Carbon Dioxide (22-29) mmol/L Anion Gap (5-19) BUN (8-23) mg/dL Creatinine (0.7-1.2) mg/dL Glucose (65-115) mg/dL Calculated Osmolal ity (285-295) mOsm/k g Lactate 1.4 (0.5-2.2) mmol/L Calcium (8.5-10.5) mg/dL Total Bilirubin (0.15-1.2) mg/dL AST (0-40) U/L ALT (0-41) U/L Alkaline Phosphata se (40-130) IU/L Creatine Kinase (39-308) U/L Troponin T Baselin e (0-15) ng/L Troponin T 120 Min [place] 14.02 (0-15) ng/L Delta Troponin T 1.02 (0-10) ABS# NT-Pro-B Natriuret Pep (0-450) pg/mL Total Protein (6.6-8.7) g/dL Albumin (3.5-5.2) g/dL Globulin (1.3-4.6) g/dL Lipase (13-60) U/L Urine Color Yellow (Yellow) Urine Appearance Clear (CLEAR) Urine pH 6 (5-7) Ur Specific Gravit y 1.015 (1.005-1.030) Urine Protein Neg (Negative) Urine Glucose (UA) Norm (Normal) Urine Ketones Negative (Negative) Urine Blood Neg (Negative) Urine Nitrate Negative (Negative) Urine Bilirubin Neg (NEGATIVE) Urine Urobilinogen Norm (Negative) mg/dL Ur Leukocyte [place] ase Negative (Negative) Discharge Plan Discharge Patient Disposition: Home, Self-Care Clinical Impression: Parkinson disease Fall Qualifiers: Encounter type: initial encounter Qualified Code(s): W19.XXXA - Unspecified fall, initial encounter Condition: Stable Prescriptions: No Action simethicone [Gas Relief Extra Strength] 125 mg Tablet,Chewable 125 mg PO TID PRN (Reason: unknown) RF: 0 metoprolol tartrate 25 mg Tablet 12.5 mg PO BID RF: 0 meclizine 25 mg Tablet 25 mg PO TID PRN (Reason: Dizziness) Qty: 20 RF: 0 trazodone 50 mg tablet 50 mg PO BEDTIME RF: 0 sertraline 100 mg Tablet 100 mg PO DAILY RF: 0 pantoprazole 20 mg tablet,delayed release (DR/EC) 20 mg PO DAILY RF: 0 carbidopa-levodopa 25-100 mg tablet 1 tab PO BID RF: 0 albuterol sulfate 90 mcg/actuation Hfa Aerosol Inhaler 2 puff INHALATION 6XD PRN (Reason: Shortness Of Breath) RF: 0 Discharge Orders: Discharge Order (Routine); Ordered 01/26/20 Ordered By: Sonny Peters Referrals: Blayne Hinojosa DO [Primary Care Provider] - Coding Level of Care Code ED Passenger Locomotive Engineer for Chg Fwd Exam Comprehensive
[2020-01-26] MEDS: sodium chloride 0.9% 500 ML IV (08:40)
--- NOTE | 2020-01-26 08:48 | XR_ITS ---
WS: [id number] XR pelvis 1-2V* [id number] REASON FOR EXAM: fall FINDINGS the sacroiliac joints were normal.: There is pelvic tilt toward the right side. The ilium, ischium, and pubis are normal. XR/XR pelvis 1-2V* 51931 IMPRESSION: Negative pelvis.
--- NOTE | 2020-01-26 08:48 | XR_ITS ---
WS: [id number] XR sacrum coccyx min 2V [id number] REASON FOR EXAM: fall FINDINGS: The sacroiliac joints appear to be normal. The sacrum was normal no fractures are seen. Coccyx showed no gross fractures or displacement. XR/XR sacrum coccyx min 2V 40512 IMPRESSION: Negative sacrococcyx study.
--- NOTE | 2020-01-26 08:49 | PC.NURSE ---
Patients daughter at bedside. Patients daughter reports that the patients niece that cares for them showed up this morning around 0700 and the patient had got up to go to the bathroom when she heard the patient fall. Daughter states that the patient was only down for 15-20 minutes. Daughter reports that the patient was complaining of hip pain before EMS arrives and when the EMS arrived the patient was complaining of tailbone pain. Daughter states the patient was fine last night and not complaining of anything. Physician notified at thist tatum.
[2020-01-26 09:02] LABS: Basophils # 0.1 10^3/uL (0.0-0.1); Basophils % 0.6 %; Eosinophils # 0.2 10^3/uL (0.0-0.8); Eosinophils % 2.1 %; Hemoglobin 14.4 g/dL (11.7-16.6); Lymphocytes % 12.4 %; Mean Corpuscular HGB Conc 33.5 g/dL (30.0-36.0); Mean Corpuscular Hemoglobin 30.5 pg (28.0-34.0); Mean Corpuscular Volume 91.1 fL (80-94); Mean Platelet Volume 8.7 fL (7.4-10.4); Monocytes # 0.6 10^3/uL (0.2-0.9); Monocytes % 7.3 %; Neutrophils # 6.4 10^3/uL (1.8-7.7); Neutrophils % 76.6 %; Nucleated Red Blood Cells % 0 %; Platelet Count 278 10^3/cmm (130-400); Red Blood Count 4.72 10^6/uL (4.1-5.3); Red Cell Distribution Width 11.9 % (12.1-15.1); White Blood Count 8.4 10^3/uL (4.0-10.0)
[2020-01-26 09:16] LABS: Lactate (Lactic Acid level) 1.4 mmol/L (0.5-2.2)
[2020-01-26 09:17] LABS: Alanine Aminotransferase 17 U/L (0-41); Albumin Level 4.3 g/dL (3.5-5.2); Alkaline Phosphatase 73 IU/L (40-130); Anion Gap 15.5 (5-19); Aspartate Amino Transferase 22 U/L (0-40); Blood Urea Nitrogen 16 mg/dL (8-23); Calcium 9.4 mg/dL (8.5-10.5); Carbon Dioxide 29 mmol/L (22-29); Chloride 100 mmol/L (98-107); Creatine Phosphokinase 42 U/L (39-308); Globulin 2.6 g/dL (1.3-4.6); Glucose 111 mg/dL (65-115); Lipase 46 U/L (13-60); Osmolality Calculated 287 mOsm/kg (285-295); Potassium 4.5 mmol/L (3.5-5.1); Sodium 140 mmol/L (136-145); Total Bilirubin 0.4 mg/dL (0.15-1.2); Total Protein 6.9 g/dL (6.6-8.7)
[2020-01-26 09:18] LABS: Troponin(5th) Baseline 13 ng/L (0-15)
[2020-01-26 09:31] VITALS: BP 113/72; PULSE 62; RESP 16; O2SAT 95
[2020-01-26 09:37] LABS: Add Urine Microscopic? NO
[2020-01-26 09:38] LABS: Bilirubin Urine Neg (NEGATIVE); Blood Urine Neg (Negative); Glucose Urine UA Norm (Normal); Ketones Urine Negative (Negative); Leukocyte Esterase Urine Negative (Negative); Nitrate Urine Negative (Negative); Protein Urine Neg (Negative); Specific Gravity, Urine 1.015 (1.005-1.030); Urine Appearance Clear (CLEAR); Urine Color Yellow (Yellow); Urobilinogen Urine Norm (Negative); pH Urine 6 (5-7)
[2020-01-26 10:10] VITALS: BP 124/68; PULSE 68; RESP 16; O2SAT 95
--- NOTE | 2020-01-26 10:34 | ECG_ITS ---
[facility] ED Test Date: 2020-01-26 Pat Name: eMir Hopson Department: Room: Gender: Male Manager Of Global: : 1945 Requested By: Sonny Wiseman Order Number: [id number] Michael MD: Esthela Raphael M.D. Measurements Intervals [place] Rate: 63 P: 39 MT: 195 QRS: -19 QRSD: 76 T: 40 QT: 397 QTc: 409 Interpretive Statements SINUS RHYTHM Compared to ECG 01/26/2020 08:45:27 No significant changes Electronically Signed On 01-26-2020 16:28:48 CDT by Esthela Raphael M.D. [id number]
[2020-01-26 10:36] VITALS: BP 129/74; PULSE 72; RESP 18; O2SAT 95
[2020-01-26 11:17] LABS: NT Pro B Type Natriuretic Pept 44 pg/mL (0-450)
[2020-01-26 11:26] LABS: Troponin 5 2HR 14.02 ng/L (0-15); Troponin 5 2HR Delta 1.02 ABS# (0-10)
[2020-01-26 11:53] VITALS: BP 126/71; PULSE 65; RESP 16; O2SAT 96
== END 2020-01-26 11:53 | disposition home or self-care (01) ==
PROVIDERS: Emergency Provider Family Medicine; Family Provider Family Medicine; PCP Family Medicine
DX: G20 Parkinson's disease (principal); I25.10 Atherosclerotic heart disease of native coronary artery without angina pectoris; Z87.891 Personal history of nicotine dependence
CPT/HCPCS: 12345; 36415; 51701; 70450; 71045; 72170; 72220; 80053; 81003; 82550; 83605; 83690; 83880; 84484; 85025; 93005; 96360; 99284; J7040

== ENCOUNTER 2020-02-27 18:36 | Emergency (ER) | payer MEDICARE, OTHER, SELFPAY ==
[2020-02-27 18:37] VITALS: BP 134/83; PULSE 88; RESP 16; TEMP 36.5; O2SAT 98; BMI 22.1
--- NOTE | 2020-02-27 18:39 | CTR_ITS ---
PROCEDURE INFORMATION: Exam: CT Angiography Chest With Contrast Exam date and time: 02/27/2020 6:53 PM Age: 75 years old Clinical indication: Abdominal pain; Generalized; Other: Not specified; Prior surgery; Surgery date: 6+ months; Surgery type: Stents; Patient HX: C/p; Abd pain; PT does have a HX of parkinson's disease TECHNIQUE: Imaging protocol: Computed tomographic angiography of the chest with intravenous contrast. 3D rendering: MIP and/or 3D reconstructed images were created by the technologist. Radiation optimization: All CT scans at this facility use at least one of these dose optimization techniques: automated exposure control; mA and/or kV adjustment per patient size (includes targeted exams where dose is matched to clinical indication); or iterative reconstruction. Contrast material: OMNIPAQUE 350; Contrast volume: 95 ml; Contrast route: INTRAVENOUS (IV); COMPARISON: CTA Thorac/Abd Aor [id number] 08/17/2017 1:12 PM FINDINGS: Pulmonary arteries: Normal. No pulmonary emboli. Aorta: There is ectasia of the ascending thoracic aorta measuring 3.9 cm in diameter, not changed from previous. Lungs: Unremarkable. No consolidation. No masses. Pleural space: Calcified pleural plaque is again seen anteriorly and posteriorly on the right there is of scarring in the right middle and lower lobes and apical pleural thickening bilaterally. Heart: Unremarkable. No cardiomegaly. No pericardial effusion. Lymph nodes: Small prevascular, AP window, and pretracheal lymph nodes are again identified not significantly changed. There are calcified left hilar lymph nodes in keeping with old granulomatous disease. Bones/joints: There are old healed fractures of the posterior right 7th 8th and 9th ribs which are new compared with 08/17/2017. Soft tissues: Unremarkable. Other findings: For which Total DLP (mGy-cm): 1636.43 IMPRESSION: 1. Stable appearance of thoracic aorta. 2. No evidence of pulmonary embolism. 3. No acute findings in the chest. PROCEDURE INFORMATION: Exam: CT Abdomen And Pelvis With Contrast Exam date and time: 02/27/2020 6:53 PM Age: 75 years old Clinical indication: Abdominal pain; Generalized; Other: Not specified; Prior surgery; Surgery date: 6+ months; Surgery type: Stents; Patient HX: C/p; Abd pain; PT does have a HX of parkinson's disease TECHNIQUE: Imaging protocol: Computed tomography of the abdomen and pelvis with intravenous contrast. Radiation optimization: All CT scans at this facility use at least one of these dose optimization techniques: automated exposure control; mA and/or kV adjustment per patient size (includes targeted exams where dose is matched to clinical indication); or iterative reconstruction. Contrast material: OMNIPAQUE 350; Contrast volume: 95 ml; Contrast route: INTRAVENOUS (IV); COMPARISON: CTA Thorac/Abd Aor [id number] 08/17/2017 1:12 PM RADIATION DOSE METRICS: Total DLP (mGy-cm): 1636.43 FINDINGS: Liver: The liver demonstrates punctate calcifications, consistent with remote granulomatous organism exposure. Gallbladder and bile ducts: The gallbladder is normal. Pancreas: The pancreas is normal. Spleen: The spleen demonstrates punctate calcifications, consistent with remote granulomatous organism exposure. Adrenals: The adrenal glands are normal. Kidneys and ureters: There is a 3 x 7 cm sized simple cyst in the upper pole of the right kidney not changed. There is a left renal collecting system calcification. There is no evidence of hydronephrosis. Stomach and bowel: There is no evidence of colitis/diverticulitis. Appendix: A normal appendix is identified. Intraperitoneal space: There is no evidence of free intraperitoneal fluid. Vasculature: There is abdominal aortic aneurysm with mural thrombus. Maximum AP diameter the is 4.4 cm and 4.0 cm transverse. This is increased compared with 3.8 x 3.4 cm on 08/17/2017. There is no evidence of leakage or extravasation. Lymph nodes: Unremarkable. No enlarged lymph nodes. Bladder: There is moderate thickening of the urinary bladder wall, probably representing hypertrophy from chronic outlet obstruction, however one could not exclude cystitis. Correlation with clinical findings is suggested. Reproductive: The prostate demonstrates mild nonspecific enlargement. The seminal vesicles are normal. Bones/joints: The lumbar spine demonstrates moderate degenerative changes at multiple levels. There is chronic appearing compression deformity of L2 with approximately 50% loss of height of the vertebral body. This is new compared with 08/17/2017. Soft tissues: Unremarkable. CT/CT angio chest w abd pel w con IMPRESSION: 1. 4.4 cm diameter abdominal aortic aneurysm, increased compared with 08/17/2017. 2. Thickening of urinary bladder wall. 3. No acute finding. Radiation Dose CTDIVOL = (mGy): DLP = 1636.43~1636.43 (mGy-cm)
--- NOTE | 2020-02-27 18:40 | ECG_ITS ---
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 Measurements Intervals [place] Rate: 76 P: 32 GA: 213 QRS: 5 QRSD: 85 T: 52 QT: 373 QTc: 421 Interpretive Statements SINUS RHYTHM WITH FIRST DEGREE AV BLOCK Compared to ECG 01/26/2020 10:30:44 First degree AV block now present Electronically Signed On 02-28-2020 16:25:39 CDT by Bobby Winter M.D. [email or web address] [email or web address] christ [email or web address]/store/OM/[id number]
--- NOTE | 2020-02-27 18:42 | W.ED.CHESTPA ---
HPI - Chest Pain General: Chief Complaint: Chest Pain Stated Complaint: CHEST PAIN Time Seen by Provider: 02/27/20 18:36 Source: patient and EMS Mode of arrival: EMS Limitations: no limitations History of Present Illness: HPI narrative: 75-year-old male who has a history of coronary artery disease along with AAA in the past. He states started having a chest abdominal pain that started 1 hour ago did radiate to his back. He states the chest pain is resolved after nitro but his belly pain still mild and rates it a 3 out of 10. Denies any worsening or improving factors. Denies any vomiting or diarrhea. MD complaint: chest pain Onset (ago): hour(s) Associated symptoms: Reports abdominal pain; Deny dyspnea, fever(s), nausea or vomiting Review of Systems Const: Denies: fever(s), chills, body aches or change in appetite Eyes: Denies: blurry vision or eye discomfort ENMT: Denies: throat pain or dental pain Card: Reports: chest pain Resp: Denies: dyspnea GI: Reports: abdominal pain; Denies: nausea, vomiting or diarrhea : Denies: dysuria Musc: Denies: neck pain or back pain Skin/Breast: Denies: rash Neuro: Denies: headache(s) Psych: Denies: depression Raphael/Lymph: Denies: easy bruising All/Imm: Denies: urticaria PFSH ED PFSH: Medical History (Updated 02/27/20 @ 21:39 by Yosef Glass MD) AAA (abdominal aortic aneurysm) Aortic cusp regurgitation Benign essential HTN Coronary artery disease Dyslipidemia Frequent falls Parkinson disease Supraventricular arrhythmia Surgical History Status post percutaneous transluminal angioplasty (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 Bleed is likely gastric he does have gastric issues before. Does have a history of aneurysm but no signs of rupture. Pain is resolved here in initial and repeat troponins are normal. Patient is stable for discharge and is to follow-up with his primary care doctor in 3 to 5 days return if worsening. Lab Data: Labs: Lab Results 02/27/20 02/27/20 02/27/20 Range/Units 19:00 19:00 19:00 WBC 12.8 H (4.0-10.0) 10^3/ uL RBC 4.58 (4.1-5.3) 10^6/u L Hgb 13.7 (11.7-16.6) g/dL Hct 41.7 L (42.0-52.0) % MCV 91.0 (80-94) fL MCH 29.9 (28.0-34.0) pg MCHC 32.9 (30.0-36.0) g/dL RDW 11.9 L (12.1-15.1) % Plt Count 328 (130-400) 10^3/c mm MPV 8.5 (7.4-10.4) fL Neut % (Auto) 78.7 % Lymph % (Auto) 10.0 % [place] % (Auto) 7.4 % Eos % (Auto) 3.1 % Baso % (Auto) 0.3 % Neut # (Auto) 10.05 H (1.8-7.7) 10^3/u L Lymph # (Auto) 1.3 (0.8-4.8) 10^3/u L [place] # (Auto) 0.9 (0.2-0.9) 10^3/u L Eos # (Auto) 0.4 (0.0-0.8) 10^3/u L Baso # (Auto) 0.0 (0.0-0.1) 10^3/u L Nucleated RBC % (a uto) 0 % Nucleated RBCs # 0.0 /100WBC PT 12.50 (10.5-13.3) SECO NDS INR 0.91 (0.8-1.2) Sodium 139 (136-145) mmol/L Potassium 4.0 (3.5-5.1) mmol/L Chloride 102 (98-107) mmol/L Carbon Dioxide 27 (22-29) mmol/L Anion Gap 14.0 (5-19) BUN 16 (8-23) mg/dL Creatinine 1.1 (0.7-1.2) mg/dL Glucose 116 H (65-115) mg/dL Calculated Osmolal ity 285 (285-295) mOsm/k g Calcium 8.9 (8.5-10.5) mg/dL Total Bilirubin 0.2 (0.15-1.2) mg/dL AST 16 (0-40) U/L ALT < 5 (0-41) U/L Alkaline Phosphata se 95 (40-130) IU/L Troponin T Baselin e (0-15) ng/L Troponin T 120 Min [place] (0-15) ng/L Delta Troponin T (0-10) ABS# Total Protein 6.8 (6.6-8.7) g/dL Albumin 4.1 (3.5-5.2) g/dL Globulin 2.7 (1.3-4.6) g/dL 02/27/20 02/27/20 Range/Units 19:00 20:56 WBC (4.0-10.0) 10^3/ uL RBC (4.1-5.3) 10^6/u L Hgb (11.7-16.6) g/dL Hct (42.0-52.0) % MCV (80-94) fL MCH (28.0-34.0) pg MCHC (30.0-36.0) g/dL RDW (12.1-15.1) % Plt Count (130-400) 10^3/c mm MPV (7.4-10.4) fL Neut % (Auto) % Lymph % (Auto) % [place] % (Auto) % Eos % (Auto) % Baso % (Auto) % Neut # (Auto) (1.8-7.7) 10^3/u L Lymph # (Auto) (0.8-4.8) 10^3/u L [place] # (Auto) (0.2-0.9) 10^3/u L Eos # (Auto) (0.0-0.8) 10^3/u L Baso # (Auto) (0.0-0.1) 10^3/u L Nucleated RBC % (a uto) % Nucleated RBCs # /100WBC PT (10.5-13.3) SECO NDS INR (0.8-1.2) Sodium (136-145) mmol/L Potassium (3.5-5.1) mmol/L Chloride (98-107) mmol/L Carbon Dioxide (22-29) mmol/L Anion Gap (5-19) BUN (8-23) mg/dL Creatinine (0.7-1.2) mg/dL Glucose (65-115) mg/dL Calculated Osmolal ity (285-295) mOsm/k g Calcium (8.5-10.5) mg/dL Total Bilirubin (0.15-1.2) mg/dL AST (0-40) U/L ALT (0-41) U/L Alkaline Phosphata se (40-130) IU/L Troponin T Baselin e 11 (0-15) ng/L Troponin T 120 Min [place] 11.09 (0-15) ng/L Delta Troponin T 0.09 (0-10) ABS# Total Protein (6.6-8.7) g/dL Albumin (3.5-5.2) g/dL Globulin (1.3-4.6) g/dL Imaging Data^: CT Chest: Radiologist's impression: [place] [address] CT Scan Report Signed Patient: Meir Hopson Unit #: [id number] : 1945 Age/Sex: 75 / M ADM Date: 02/27/20 Loc: ER Room/Bed: Attending Dr: Ordering Provider/Ordering MD: Yosef Glass MD Date of Service: 02/27/20 Procedure(s): CT angio chest w abd pel w con Accession Number(s): [id number] Report Number: [id number] PROCEDURE INFORMATION: Exam: CT Angiography Chest With Contrast Exam date and time: 02/27/2020 6:53 PM Age: 75 years old Clinical indication: Abdominal pain; Generalized; Other: Not specified; Prior surgery; Surgery date: 6+ months; Surgery type: Stents; Patient HX: C/p; Abd pain; PT does have a HX of parkinson's disease TECHNIQUE: Imaging protocol: Computed tomographic angiography of the chest with intravenous contrast. 3D rendering: MIP and/or 3D reconstructed images were created by the technologist. Radiation optimization: All CT scans at this facility use at least one of these dose optimization techniques: automated exposure control; mA and/or kV adjustment per patient size (includes targeted exams where dose is matched to clinical indication); or iterative reconstruction. Contrast material: OMNIPAQUE 350; Contrast volume: 95 ml; Contrast route: INTRAVENOUS (IV); COMPARISON: CTA Thorac/Abd Aor [id number] 08/17/2017 1:12 PM FINDINGS: Pulmonary arteries: Normal. No pulmonary emboli. Aorta: There is ectasia of the ascending thoracic aorta measuring 3.9 cm in diameter, not changed from previous. Lungs: Unremarkable. No consolidation. No masses. Pleural space: Calcified pleural plaque is again seen anteriorly and posteriorly on the right there is of scarring in the right middle and lower lobes and apical pleural thickening bilaterally. Heart: Unremarkable. No cardiomegaly. No pericardial effusion. Lymph nodes: Small prevascular, AP window, and pretracheal lymph nodes are again identified not significantly changed. There are calcified left hilar lymph nodes in keeping with old granulomatous disease. Bones/joints: There are old healed fractures of the posterior right 7th 8th and 9th ribs which are new compared with 08/17/2017. Soft tissues: Unremarkable. Other findings: For which Total DLP (mGy-cm): 1636.43 IMPRESSION: 1. Stable appearance of thoracic aorta. 2. No evidence of pulmonary embolism. 3. No acute findings in the chest. PROCEDURE INFORMATION: Exam: CT Abdomen And Pelvis With Contrast Exam date and time: 02/27/2020 6:53 PM Age: 75 years old Clinical indication: Abdominal pain; Generalized; Other: Not specified; Prior surgery; Surgery date: 6+ months; Surgery type: Stents; Patient HX: C/p; Abd pain; PT does have a HX of parkinson's disease TECHNIQUE: Imaging protocol: Computed tomography of the abdomen and pelvis with intravenous contrast. Radiation optimization: All CT scans at this facility use at least one of these dose optimization techniques: automated exposure control; mA and/or kV adjustment per patient size (includes targeted exams where dose is matched to clinical indication); or iterative reconstruction. Contrast material: OMNIPAQUE 350; Contrast volume: 95 ml; Contrast route: INTRAVENOUS (IV); COMPARISON: CTA Thorac/Abd Aor [id number] 08/17/2017 1:12 PM RADIATION DOSE METRICS: Total DLP (mGy-cm): 1636.43 FINDINGS: Liver: The liver demonstrates punctate calcifications, consistent with remote granulomatous organism exposure. Gallbladder and bile ducts: The gallbladder is normal. Pancreas: The pancreas is normal. Spleen: The spleen demonstrates punctate calcifications, consistent with remote granulomatous organism exposure. Adrenals: The adrenal glands are normal. Kidneys and ureters: There is a 3 x 7 cm sized simple cyst in the upper pole of the right kidney not changed. There is a left renal collecting system calcification. There is no evidence of hydronephrosis. Stomach and bowel: There is no evidence of colitis/diverticulitis. Appendix: A normal appendix is identified. Intraperitoneal space: There is no evidence of free intraperitoneal fluid. Vasculature: There is abdominal aortic aneurysm with mural thrombus. Maximum AP diameter the is 4.4 cm and 4.0 cm transverse. This is increased compared with 3.8 x 3.4 cm on 08/17/2017. There is no evidence of leakage or extravasation. Lymph nodes: Unremarkable. No enlarged lymph nodes. Bladder: There is moderate thickening of the urinary bladder wall, probably representing hypertrophy from chronic outlet obstruction, however one could not exclude cystitis. Correlation with clinical findings is suggested. Reproductive: The prostate demonstrates mild nonspecific enlargement. The seminal vesicles are normal. Bones/joints: The lumbar spine demonstrates moderate degenerative changes at multiple levels. There is chronic appearing compression deformity of L2 with approximately 50% loss of height of the vertebral body. This is new compared with 08/17/2017. Soft tissues: Unremarkable. CT/CT angio chest w abd pel w con IMPRESSION: 1. 4.4 cm diameter abdominal aortic aneurysm, increased compared with 08/17/2017. 2. Thickening of urinary bladder wall. 3. No acute finding. EKG Data^: EKG 2: Attestation: I personally reviewed and interpreted this EKG as follows: EKG interpretation date: 02/27/20 EKG interpretation time: 20:50 Interpretation: nsr hr [address] or t wave abnormalities qrs 80 qtc 398 Discharge Plan Discharge Patient Disposition: Home, Self-Care Clinical Impression: Atypical chest pain Abdominal pain Qualifiers: Abdominal location: epigastric Qualified Code(s): R10.13 - Epigastric pain Condition: Stable Prescriptions: No Action simethicone [Gas Relief Extra Strength] 125 mg Tablet,Chewable 125 mg PO BID PRN (Reason: unknown) RF: 0 metoprolol tartrate 25 mg Tablet 12.5 mg PO BID RF: 0 meclizine 25 mg Tablet 25 mg PO TID PRN (Reason: Dizziness) Qty: 20 RF: 0 trazodone 50 mg tablet 50 mg PO BEDTIME RF: 0 pantoprazole 20 mg tablet,delayed release (DR/EC) 20 mg PO DAILY RF: 0 carbidopa-levodopa 25-100 mg tablet 1 tab PO BID RF: 0 albuterol sulfate 90 mcg/actuation Hfa Aerosol Inhaler 2 puff INHALATION Q4H PRN (Reason: Shortness Of Breath) RF: 0 escitalopram oxalate 20 mg tablet 20 mg PO DAILY RF: 0 Discharge Orders: Discharge Order (Routine); Ordered 02/27/20 Ordered By: Yosef Glass Referrals: Blayne Hinojosa DO [Primary Care Provider] - 1-3 days Discharge Diet: Advance as tolerated Discharge Activity: Resume usual activity Patient Instructions: Abdominal Pain (ED) Discharge Date/Time: 02/27/20 22:25 Coding Level of Care Code ED [place] Technician for Rodrigo Calix
[2020-02-27] MEDS: ondansetron 2 mg/ML SDV 2 mL 4 MG IVP (18:57)
[2020-02-27 19:00] VITALS: RESP 18; O2SAT 92
[2020-02-27] MEDS: morphine 4 mg/mL SDV 1 mL IVP (19:00)
[2020-02-27 19:08] LABS: Basophils % 0.3 %; Eosinophils # 0.4 10^3/uL (0.0-0.8); Eosinophils % 3.1 %; Hematocrit 41.7 % (42.0-52.0); Hemoglobin 13.7 g/dL (11.7-16.6); Lymphocytes # 1.3 10^3/uL (0.8-4.8); Mean Corpuscular HGB Conc 32.9 g/dL (30.0-36.0); Mean Corpuscular Hemoglobin 29.9 pg (28.0-34.0); Mean Platelet Volume 8.5 fL (7.4-10.4); Monocytes # 0.9 10^3/uL (0.2-0.9); Monocytes % 7.4 %; Neutrophils # 10.05 10^3/uL (1.8-7.7); Neutrophils % 78.7 %; Nucleated Red Blood Cells % 0 %; Platelet Count 328 10^3/cmm (130-400); Red Blood Count 4.58 10^6/uL (4.1-5.3); Red Cell Distribution Width 11.9 % (12.1-15.1); White Blood Count 12.8 10^3/uL (4.0-10.0)
[2020-02-27 19:16] LABS: INR 0.91 (0.8-1.2)
[2020-02-27 19:22] LABS: Alanine Aminotransferase < 5 U/L (0-41); Albumin Level 4.1 g/dL (3.5-5.2); Alkaline Phosphatase 95 IU/L (40-130); Aspartate Amino Transferase 16 U/L (0-40); Blood Urea Nitrogen 16 mg/dL (8-23); Calcium 8.9 mg/dL (8.5-10.5); Carbon Dioxide 27 mmol/L (22-29); Chloride 102 mmol/L (98-107); Globulin 2.7 g/dL (1.3-4.6); Glucose 116 mg/dL (65-115); Osmolality Calculated 285 mOsm/kg (285-295); Sodium 139 mmol/L (136-145); Total Bilirubin 0.2 mg/dL (0.15-1.2); Total Protein 6.8 g/dL (6.6-8.7)
[2020-02-27 19:23] LABS: Troponin(5th) Baseline 11 ng/L (0-15)
[2020-02-27] MEDS: iohexol 350 mg/mL 100 mL Btl IV (19:59)
[2020-02-27 20:35] VITALS: BP 133/91; PULSE 78; RESP 20; O2SAT 97
--- NOTE | 2020-02-27 20:40 | ECG_ITS ---
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 Measurements Intervals [place] Rate: 77 P: 47 VA: 195 QRS: 9 QRSD: 80 T: 53 QT: 366 QTc: 416 Interpretive Statements SINUS RHYTHM Compared to ECG 02/27/2020 18:55:30 First degree AV block no longer present Electronically Signed On 02-28-2020 16:31:10 CDT by Bobby Winter M.D. [email or web address]/[id number]
[2020-02-27 21:14] LABS: Troponin 5 2HR 11.09 ng/L (0-15); Troponin 5 2HR Delta 0.09 ABS# (0-10)
[2020-02-27 22:11] VITALS: BP 132/84; PULSE 74; RESP 18; O2SAT 97
== END 2020-02-27 22:25 | disposition home or self-care (01) ==
PROVIDERS: Emergency Provider Emergency Medicine; PCP Family Medicine
DX: R07.89 Other chest pain (principal); R10.13 Epigastric pain; I10 Essential (primary) hypertension; I25.10 Atherosclerotic heart disease of native coronary artery without angina pectoris; E78.5 Hyperlipidemia, unspecified; G20 Parkinson's disease; Z87.891 Personal history of nicotine dependence
CPT/HCPCS: 12345; 36415; 71275; 74177; 80053; 84484; 85025; 85610; 93005; 96374; 96375; 99283; 99284; J2270; J2405; Q9967

== ENCOUNTER 2020-02-28 13:58 | Emergency (ER) | payer MEDICARE, OTHER, SELFPAY ==
[2020-02-28 14:00] VITALS: BP 126/84; PULSE 83; RESP 18; O2SAT 93; BMI 20.7
--- NOTE | 2020-02-28 14:01 | ECG_ITS ---
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 Measurements Intervals [place] Rate: 89 P: 34 GA: 249 QRS: -5 QRSD: 87 T: 31 QT: 338 QTc: 412 Interpretive Statements SINUS RHYTHM WITH FIRST DEGREE AV BLOCK POSSIBLE RIGHT VENTRICULAR CONDUCTION DELAY [RSR (QR) IN V1/V2] EARLY REPOLARIZATION [ST ELEVATION WITH NORMALLY INFLECTED T WAVE] Compared to ECG 02/27/2020 20:50:36 First degree AV block now present Early repolarization now present Electronically Signed On 02-28-2020 16:26:50 CDT by Bobby Winter M.D. [id number] f
--- NOTE | 2020-02-28 14:01 | XRR_ITS ---
PROCEDURE INFORMATION: Exam: XR Chest, 1 View Exam date and time: 02/28/2020 2:32 PM Age: 75 years old Clinical indication: Other: Stemi; Prior surgery; Surgery type: Stents TECHNIQUE: Imaging protocol: XR of the chest Views: 1 view. COMPARISON: CT angio chest w abd pel w con 02/27/2020 7:51 PM FINDINGS: Lungs: Unremarkable. No consolidation. Pleural space: Calcified pleural plaque is seen in the anterior wall of the right hemithorax No pleural effusion. No pneumothorax. This finding is stable comparing to prior examination Heart/Mediastinum: Unremarkable. No cardiomegaly. Bones/joints: Unremarkable. XR/XR chest 1V portable [id number] IMPRESSION: No acute findings. Stable calcified pleural plaque right hemithorax
[2020-02-28] MEDS: aspirin 325 mg Tablet PO (14:14)
[2020-02-28 14:16] LABS: Basophils % 0.3 %; Eosinophils # 0.2 10^3/uL (0.0-0.8); Eosinophils % 1.2 %; Hematocrit 42.6 % (42.0-52.0); Hemoglobin 13.7 g/dL (11.7-16.6); Lymphocytes # 1.3 10^3/uL (0.8-4.8); Lymphocytes % 9.7 %; Mean Corpuscular HGB Conc 32.2 g/dL (30.0-36.0); Mean Corpuscular Hemoglobin 29.6 pg (28.0-34.0); Mean Platelet Volume 8.7 fL (7.4-10.4); Monocytes # 1.6 10^3/uL (0.2-0.9); Monocytes % 11.4 %; Neutrophils # 10.45 10^3/uL (1.8-7.7); Nucleated Red Blood Cells % 0 %; Platelet Count 325 10^3/cmm (130-400); Red Blood Count 4.63 10^6/uL (4.1-5.3); White Blood Count 13.6 10^3/uL (4.0-10.0)
--- NOTE | 2020-02-28 14:29 | W.ED.CHESTPA ---
HPI - Chest Pain General: Chief Complaint: Chest Pain Stated Complaint: CHEST PAIN Time Seen by Provider: 02/28/20 14:10 History of Present Illness: HPI narrative: 75-year-old male who presented to the emergency room with complaint of substernal chest pain is little bit worse on the right when he takes a deep breath he was seen last night had an abdominal aortic aneurysm that had gotten a little bit larger in size at that time he does have abdominal pain. He also has a history of Parkinson's. When I seen the patient initially he said he was still having a little substernal chest pain pressure reviewed his EKGs and consult with Dr. Bennett respiratory get their further couple of troponins the patient states his chest pain is completely resolved. He stated earlier when he had the chest pain he was resting and the pain was associated with deep inspiration. MD complaint: chest pain Pertinent past history: coronary artery disease and CABG Onset (ago): minute(s) Timing of current episode: episodic Prior episodes: Yes Onset: during rest Pain location: substernal and right chest Pain radiation: none Severity: mild Quality: heaviness Relieving factors: remaining still Exacerbating factors: other (Deep inspiration) Associated symptoms: Reports no associated symptoms; Deny abdominal pain, dyspnea, fever(s), nausea or vomiting Treatment prior to arrival: none Review of Systems Const: Denies: fever(s), chills, body aches, change in appetite, fatigue or malaise ENMT: Denies: throat pain, ear or mastoid pain, nasal discharge or nasal congestion Card: Denies: chest pain, edema, dyspnea on exertion or orthopnea Resp: Denies: dyspnea, productive cough or non-productive cough GI: Denies: abdominal pain, nausea, vomiting, hematemesis, coffee ground emesis, diarrhea, constipation, bloating, hematochezia or melena : Denies: flank pain, dysuria, urinary frequency or urinary urgency Skin/Breast: Denies: rash or pruritus PFSH ED PFSH: Medical History AAA (abdominal aortic aneurysm) Aortic cusp regurgitation Benign essential HTN Coronary artery disease Dyslipidemia Frequent falls Parkinson disease Supraventricular arrhythmia Surgical History 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 Social History Smoking and tobacco status: former smoker Physical Exam Const: COMMON NORMALS: average body habitus, patient oriented x3 and alert GENERAL APPEARANCE: cooperative, comfortable, well kempt and well developed NUTRITIONAL APPEARANCE: obese ORIENTATION/CONSCIOUSNESS: Yes awake, Yes oriented to person and Yes oriented to place HENMT: COMMON NORMALS: normocephalic and atraumatic HEAD & SCALP: normocephalic and atraumatic Eye: COMMON NORMALS: Equal, round and reactive pupils present, EOMs intact bilaterally, conjunctivae normal and no scleral icterus CONJUNCTIVA: Yes conjunctivae normal PUPIL: Yes Equal, round and reactive pupils present Neck/C-Spine: COMMON NORMALS: full ROM, no lymphadenopathy, supple, no meningeal signs and Thyroid normal THYROID: Thyroid normal and asymmetrical Lymph: LYMPHATIC: no lymphadenopathy noted Resp: COMMON NORMALS: normal respiratory effort, No retractions, No use of accessory muscles and clear to auscultation bilaterally AUSCULTATION: clear to auscultation bilaterally Cardio: COMMON NORMALS: regular rate and regular rhythm RATE: regular rate RHYTHM: regular rhythm HEART SOUNDS: no murmurs GI: COMMON NORMALS: Normal to inspection, nondistended, normoactive bowel sounds present, Soft to palpation and No hepatosplenomegaly present PALPATION: Yes Soft to palpation and Yes No hepatosplenomegaly present : COMMON NORMALS: Yes no CVA tenderness BLADDER/KIDNEY EXAM: Yes no CVA tenderness Back/Pelvis: COMMON NORMALS: no CVA tenderness LUMBAR SPINE/LOWER BACK: Yes normal to inspection Extremity: COMMON NORMALS: no clubbing, cyanosis or edema, no calf tenderness and no pedal edema Neuro: COMMON NORMALS: patient oriented x3 SENSORIUM/ORIENTATION: Yes alert, Yes oriented to person and Yes oriented to place MENINGEAL SIGNS: Yes no meningeal signs Psych: APPEARANCE: Yes well kempt Skin: COMMON NORMALS: no rashes or lesions noted and turgor normal GENERAL SKIN EXAM: no rashes or lesions noted and turgor normal Course Vital Signs: Vital signs: Vital Signs Pulse Rate 90 02/28/20 17:20 Respiratory Rate 18 02/28/20 17:20 Blood Pressure 131/83 02/28/20 17:20 Pulse Oximetry 94 02/28/20 17:20 MDM - Chest Pain MDM Narrative: Medical decision making narrative: Initially STEMI alert was called based on field EKG on arrival here reviewed last night's EKG with this morning with this afternoon he does indeed have some ST elevation but looks more like early repolarization in V2 3 and somewhat in [address] Bennett he felt the same and did not wish to proceed immediately to the Teletype Adjuster and asked instead that we go ahead and gets the first 2 troponins. Lab Data: Labs: Lab Results 02/28/20 02/28/20 02/28/20 Range/Units 14:09 14:09 14:09 WBC 13.6 H (4.0-10.0) 10^3/ uL RBC 4.63 (4.1-5.3) 10^6/u L Hgb 13.7 (11.7-16.6) g/dL Hct 42.6 (42.0-52.0) % MCV 92.0 (80-94) fL MCH 29.6 (28.0-34.0) pg MCHC 32.2 (30.0-36.0) g/dL RDW 12.0 L (12.1-15.1) % Plt Count 325 (130-400) 10^3/c mm MPV 8.7 (7.4-10.4) fL Neut % (Auto) 77.0 % Lymph % (Auto) 9.7 % Coles % (Auto) 11.4 % Eos % (Auto) 1.2 % Baso % (Auto) 0.3 % Neut # (Auto) 10.45 H (1.8-7.7) 10^3/u L Lymph # (Auto) 1.3 (0.8-4.8) 10^3/u L Coles # (Auto) 1.6 H (0.2-0.9) 10^3/u L Eos # (Auto) 0.2 (0.0-0.8) 10^3/u L Baso # (Auto) 0.0 (0.0-0.1) 10^3/u L Nucleated RBC % (a uto) 0 % Nucleated RBCs # 0.0 /100WBC Sodium 137 (136-145) mmol/L Potassium 4.0 (3.5-5.1) mmol/L Chloride 100 (98-107) mmol/L Carbon Dioxide 27 (22-29) mmol/L Anion Gap 14.0 (5-19) BUN 20 (8-23) mg/dL Creatinine 1.1 (0.7-1.2) mg/dL Glucose 93 (65-115) mg/dL Calculated Osmolal ity 280 L (285-295) mOsm/k g Calcium 9.6 (8.5-10.5) mg/dL Magnesium 2.0 (1.7-2.3) mg/dL Total Bilirubin 0.4 (0.15-1.2) mg/dL AST 15 (0-40) U/L ALT 7 (0-41) U/L Alkaline Phosphata se 83 (40-130) IU/L Troponin T Baselin e 15 (0-15) ng/L Troponin T 120 Min [place] (0-15) ng/L Delta Troponin T (0-10) ABS# Total Protein 7.0 (6.6-8.7) g/dL Albumin 4.2 (3.5-5.2) g/dL Globulin 2.8 (1.3-4.6) g/dL 02/28/20 Range/Units 16:01 WBC (4.0-10.0) 10^3/ uL RBC (4.1-5.3) 10^6/u L Hgb (11.7-16.6) g/dL Hct (42.0-52.0) % MCV (80-94) fL MCH (28.0-34.0) pg MCHC (30.0-36.0) g/dL RDW (12.1-15.1) % Plt Count (130-400) 10^3/c mm MPV (7.4-10.4) fL Neut % (Auto) % Lymph % (Auto) % Coles % (Auto) % Eos % (Auto) % Baso % (Auto) % Neut # (Auto) (1.8-7.7) 10^3/u L Lymph # (Auto) (0.8-4.8) 10^3/u L Coles # (Auto) (0.2-0.9) 10^3/u L Eos # (Auto) (0.0-0.8) 10^3/u L Baso # (Auto) (0.0-0.1) 10^3/u L Nucleated RBC % (a uto) % Nucleated RBCs # /100WBC Sodium (136-145) mmol/L Potassium (3.5-5.1) mmol/L Chloride (98-107) mmol/L Carbon Dioxide (22-29) mmol/L Anion Gap (5-19) BUN (8-23) mg/dL Creatinine (0.7-1.2) mg/dL Glucose (65-115) mg/dL Calculated Osmolal ity (285-295) mOsm/k g Calcium (8.5-10.5) mg/dL Magnesium (1.7-2.3) mg/dL Total Bilirubin (0.15-1.2) mg/dL AST (0-40) U/L ALT (0-41) U/L Alkaline Phosphata se (40-130) IU/L Troponin T Baselin e (0-15) ng/L Troponin T 120 Min [place] 13.46 (0-15) ng/L Delta Troponin T -1.54 L (0-10) ABS# Total Protein (6.6-8.7) g/dL Albumin (3.5-5.2) g/dL Globulin (1.3-4.6) g/dL Discharge Plan Discharge Patient Disposition: Home, Self-Care Clinical Impression: Atypical chest pain, Pleuritic chest pain, Parkinson disease, AAA (abdominal aortic aneurysm), Benign essential HTN Condition: Stable Prescriptions: No Action simethicone [Gas Relief Extra Strength] 125 mg Tablet,Chewable 125 mg PO BID PRN (Reason: unknown) RF: 0 metoprolol tartrate 25 mg Tablet 12.5 mg PO BID RF: 0 meclizine 25 mg Tablet 25 mg PO TID PRN (Reason: Dizziness) Qty: 20 RF: 0 trazodone 50 mg tablet 50 mg PO BEDTIME RF: 0 pantoprazole 20 mg tablet,delayed release (DR/EC) 20 mg PO DAILY RF: 0 carbidopa-levodopa 25-100 mg tablet 1 tab PO BID RF: 0 albuterol sulfate 90 mcg/actuation Hfa Aerosol Inhaler 2 puff INHALATION Q4H PRN (Reason: Shortness Of Breath) RF: 0 escitalopram oxalate 20 mg tablet 20 mg PO DAILY RF: 0 Referrals: Ashish,Blayne F, DO [Primary Care Provider] - Discharge Diet: Usual diet Discharge Activity: Resume usual activity Activity Restrictions/Additional Instructions: Follow-up with your primary care doctor as needed Discharge Date/Time: 02/28/20 17:35 Coding Level of Care Code ED Product/Device Technologist for Rodrigo Fwd Exam Comprehensive
[2020-02-28 14:38] LABS: Alanine Aminotransferase 7 U/L (0-41); Albumin Level 4.2 g/dL (3.5-5.2); Alkaline Phosphatase 83 IU/L (40-130); Aspartate Amino Transferase 15 U/L (0-40); Blood Urea Nitrogen 20 mg/dL (8-23); Calcium 9.6 mg/dL (8.5-10.5); Carbon Dioxide 27 mmol/L (22-29); Chloride 100 mmol/L (98-107); Globulin 2.8 g/dL (1.3-4.6); Glucose 93 mg/dL (65-115); Osmolality Calculated 280 mOsm/kg (285-295); Sodium 137 mmol/L (136-145); Total Bilirubin 0.4 mg/dL (0.15-1.2); Troponin(5th) Baseline 15 ng/L (0-15)
[2020-02-28 16:00] VITALS: BP 118/79; PULSE 90; RESP 20; O2SAT 94
--- NOTE | 2020-02-28 16:01 | ECG_ITS ---
[facility] Test Date: 2020-02-28 Pat Name: Meir Hopson Department: Room: Gender: Male Development Intern: : 1945 Requested By: Yessy Manuel Order Number: [id number] Michael MD: Laurie Jolly M.D. Measurements Intervals [place] Rate: 84 P: 52 CT: 243 QRS: 6 QRSD: 79 T: 53 QT: 348 QTc: 414 Interpretive Statements SINUS RHYTHM WITH FIRST DEGREE AV BLOCK ST ELEVATION, PROBABLY EARLY REPOLARIZATION [ST ELEVATION WITH NORMALLY INFLECTED T WAVE] Compared to ECG 02/28/2020 14:12:30 ST (T wave) deviation now present Electronically Signed On 02-29-2020 20:35:22 CDT by Laurie Jolly M.D. [id number]
[2020-02-28 16:27] LABS: Troponin 5 2HR 13.46 ng/L (0-15)
[2020-02-28 16:28] LABS: Troponin 5 2HR Delta -1.54 ABS# (0-10)
[2020-02-28 17:20] VITALS: BP 131/83; PULSE 90; RESP 18; O2SAT 94
== END 2020-02-28 17:35 | disposition home or self-care (01) ==
PROVIDERS: Emergency Medicine; Emergency Provider Family Medicine; PCP Family Medicine
DX: I71.4 Abdominal aortic aneurysm, without rupture (principal); I10 Essential (primary) hypertension; R07.89 Other chest pain; I25.10 Atherosclerotic heart disease of native coronary artery without angina pectoris; E78.5 Hyperlipidemia, unspecified; G20 Parkinson's disease; Z87.891 Personal history of nicotine dependence
CPT/HCPCS: 12345; 71045; 80053; 83735; 84484; 85025; 93005; 99283; 99284

== ENCOUNTER 2020-03-08 07:18 | Outpatient (CLI) | payer MEDICARE, OTHER, SELFPAY ==
--- NOTE | 2020-03-08 07:30 | USCV_ITS ---
Meir Hopson Age: 75 Gender: M : 1945 Exam Date: 03/08/2020 07:43 Ordering Phys: Laurie Jolly MD ([email or web address]) Technologist: Christine Carroll Exam Location: [facility] [place] Indication: BP: 143 / 74 HR: 70 Rhythm: Sinus Technical Quality: Adequate MEASUREMENTS (Male / Female) Normal Values 2D ECHO LV Diastolic Diameter PLAX 4.2 cm 4.2 - 5.9 / 3.9 - 5.3 cm LV Systolic Diameter PLAX 2.8 cm LV Chamber Size 3.8 cm IVS Diastolic Thickness 1.2 cm 0.6 - 1.0 / 0.6 - 0.9 cm IVS Systolic Thickness 1.1 cm LVPW Diastolic Thickness 0.9 cm 0.6 - 1.0 / 0.6 - 0.9 cm LVPW Systolic Thickness 1.7 cm RV Chamber Size 2.5 cm LVOT Diameter 2.0 cm LV Ejection Fraction 2D Teich 63.2 % LV Ejection Fraction MOD 2C 58.1 % LV Ejection Fraction 2C AL 59.3 % LA Diameter 3.2 cm LA Width 2.9 cm LA Height 4.0 cm RA Width 2.0 cm RA Height 3.5 cm Aorta at Sinotubular Diameter 3.5 cm M-MODE LV Diastolic Diameter MM 5.1 cm 4.2 - 5.9 / 3.9 - 5.3 cm LV Systolic Diameter MM 3.2 cm LV Ejection Fraction MM Teich 67.3 % IVS Diastolic Thickness MM 0.8 cm 0.6 - 1.0 / 0.6 - 0.9 cm IVS Systolic Thickness MM 1.5 cm LVPW Diastolic Thickness MM 1.3 cm 0.6 - 1.0 / 0.6 - 0.9 cm LVPW Systolic Thickness MM 1.2 cm Aortic Annulus Diameter 4.2 cm LA Ao Ratio MM 0.8 MV E Point Septal Separation 0.8 cm DOPPLER AV Peak Velocity 168.0 cm/s LVOT Peak Velocity 90.0 cm/s AV Area Cont Eq vti 1.7 cm squared AV Area Cont Eq pk 1.7 cm squared MV Area PHT 5.6 cm squared Mitral E to A Ratio 0.5 MV E' Velocity 8.0 cm/s Mitral E to MV E' Ratio 6.8 Mitral E to LV E' Lateral Ratio 5.3 Mitral E to LV E' Septal Ratio 9.7 TV Peak E Velocity 78.0 cm/s Right Atrial Pressure 3.0 mmHg PV Peak Velocity 39.0 cm/s FINDINGS Left Ventricle Normal left ventricular size and systolic function, EF 58 %. No regional wall motion abnormalities. Grade I/IV diastolic dysfunction (abnormal relaxation filling pattern), normal to mildly elevated filling pressures. Right Ventricle Normal right ventricular systolic function. Right Atrium The right atrium is normal in size. Left Atrium The left atrium is normal in size. Mitral Valve Thickened mitral valve. Mild mitral annular calcification. Aortic Valve Thickened aortic valve. Mild aortic valve regurgitation. Tricuspid Valve No gross abnormalities noted Pulmonic Valve Pulmonic valve not well visualized. Pericardium Normal pericardium without effusion. Aorta Dilated aortic root, measuring 4.4 cm at the level of the sinuses. CONCLUSIONS Normal left ventricular size and systolic function, EF 58 %. No regional wall motion abnormalities. Grade I/IV diastolic dysfunction (abnormal relaxation filling pattern), normal to mildly elevated filling pressures. Thickened mitral valve. Mild mitral annular calcification. Mild aortic valve regurgitation. Features of aortic valve sclerosis Dilated aortic root, measuring 4.4 cm at the level of the sinuses. Compared to the study from 10/05/2014, there may not be a significant change Dr Laurie Jolly MD [facility] (Electronically Signed) Final Date: 08 March 2020 18:04 S
--- NOTE | 2020-03-08 08:00 | USCV_ITS ---
Mark Anthony Meir Age: 75 Gender: M : 1945 Exam Date: 03/08/2020 08:07 Ordering Phys: Laurie Jolly MD ([email or web address]) Technologist: Christine Carroll Exam Location: [facility] [place] Indication: AAA HISTORY: Diameter (cm) AP x Transverse x Length Velocity (cm/s) Waveform Prox Aorta: 1.93 x 1.29 x 1.85 24.90 Mid Aorta: 2.33 x 2.10 x 2.34 31.90 Distal Aorta: 4.53 x 3.99 x 13.90 Right Iliac Prox: x x 1.14 29.80 Left Iliac Prox: x x 0.89 43.00 Stent Prox Landing x x Aneurysmal Sac Max x x Lt Lat Sac Dim Rt Lat Sac Dim Stent Dist Landing x x Right Iliac Stent x x Left Iliac Stent x x Right Renal Art Left Renal Art FINDINGS: Aneurysmal dilatation of the distal abdominal aorta measuring 4.53 x 3.99 cm. Heavy plaques were noted in the mid and distal abdominal aorta both in the anterior and posterior mandujano The proximal iliac arteries were not visualized well. CONCLUSIONS Fusiform aneurysm of the distal abdominal aorta measuring 4.53 x 3.99 cm. Heavy plaques in the mid and distal abdominal aorta. Iliac arteries were not visualized well. Compared to the previous study from 11/01/2014, there is significant change in the size of the aneurysm. Technically somewhat difficult study. Consider CTA, to better evaluate the aorta and iliac vessels Dr Laurie Jolly MD [facility] (Electronically Signed) Final Date: 09 March 2020 00:48 S
== END 2020-03-08 07:19 | disposition home or self-care (01) ==
LOC: US 07:18
PROVIDERS: PCP Family Medicine; Visit Provider Internal Medicine Cardiovascular Disease
DX: I71.4 Abdominal aortic aneurysm, without rupture (principal); I35.0 Nonrheumatic aortic (valve) stenosis; I05.9 Rheumatic mitral valve disease, unspecified; I35.1 Nonrheumatic aortic (valve) insufficiency
CPT/HCPCS: 93306; 93978

== ENCOUNTER 2020-03-26 08:26 | Outpatient (CLI) | payer MEDICARE, OTHER, SELFPAY ==
--- NOTE | 2020-03-26 08:30 | CT_ITS ---
WS: [id number] CTA CHEST ABDOMEN AND PELVIS TECHNIQUE: Noncontrast plus contrast enhanced CTA of the chest, abdomen, and pelvis with coronal and sagittal reformatted images and additional MIP Images. CLINICAL INFORMATION: To assess AAA and aortic root dilation COMPARISON: February 27, [address] abdomen pelvis DLP: 2559.[address] scans at [facility] use at least one of these dose optimization techniques: automat ed exposure control; mA and/or kV adjustment per patient size (includes targeted exams where dose is matched to clinical indication); or iterative reconstruction. FINDINGS: Ectatic ascending thoracic aorta measuring 3.8 x 4.1 cm AP by transverse. Normal aortic arch. Normal descending thoracic aorta. Abdominal aortic aneurysm with peripheral mural thrombus. Abdominal aortic aneurysm measures approxim ately 4.1 x 4.2 x 5.7 cm AP by transverse by craniocaudal.Celiac and SMA are patent. Proximal renal a rteries are patent. Thyroid gland is normal. Coronary calcification. No mediastinal or hilar lymphadenopathy. No axillary lymphadenopathy. Chronic emphysematous changes. Pleural plaques right lower lobe. Subsegmental atele ctasis right lower lobe and right middle lobe with fibrosis. Diffuse fatty infiltration liver. Normal portal vein and splenic vein. Normal pancreas. Normal spleen . Normal GE junction. Adrenal glands are normal. Normal renal parenchymal enhancement. Stable right r enal peripelvic cyst measuring 7.2 x 3.9 CM. Sigmoid diverticulosis. No evidence of acute diverticulitis. No evidence of small or large bowel obst ruction. No periaortic or pelvic lymphadenopathy. Incidental fat-containing umbilical hernia. Mild co mpression L2 superior endplate. Evidence of prior TURP. CT/CT angio chest abdomen pelvis IMPRESSION: 1. Infrarenal abdominal aortic aneurysm measuring 4.1 x 4.2 x 5.7 cm AP by tra nsverse by craniocaudal with surrounding mural thrombus. 2. Ectatic ascending thoracic aorta measuring 3.8 x 4.1 CM AP by transverse. 3. Moderate emphysematous changes with pleural plaques right lower lobe. 4. Sigmoid diverticulosis. 5. Lobulated right peripelvic renal cyst measuring 3.9 x 7.2 cm unchanged 6. Mild compression superior endplate L2 new since June 14, 2019
[2020-03-26] MEDS: iohexol 350 mg/mL 100 mL Btl IV (10:21)
== END 2020-03-26 08:27 | disposition home or self-care (01) ==
LOC: RADWPI 08:34
PROVIDERS: Family Provider Family Medicine; PCP Family Medicine; Visit Provider Internal Medicine Cardiovascular Disease
DX: I71.4 Abdominal aortic aneurysm, without rupture (principal); K57.30 Diverticulosis of large intestine without perforation or abscess without bleeding; N28.1 Cyst of kidney, acquired; S32.020A Wedge compression fracture of second lumbar vertebra, initial encounter for closed fracture; X58.XXXA Exposure to other specified factors, initial encounter
CPT/HCPCS: 71275; 74174; Q9967

== ENCOUNTER 2020-05-15 17:33 | Emergency (ER) | payer OTHER, SELFPAY ==
[2020-05-15] VITALS (10 sets, daily range): BP systolic 99–123; BP diastolic 66–84; PULSE 69–123; RESP 14–22; TEMP 36.3; O2SAT 4–97; BMI 23.1
--- NOTE | 2020-05-15 17:57 | XRR_ITS ---
PROCEDURE INFORMATION: Exam: XR Chest, 1 View Exam date and time: 05/15/2020 7:03 PM Age: 75 years old Clinical indication: Shortness of breath; Additional info: Respiratory distress TECHNIQUE: Imaging protocol: XR of the chest Views: 1 view. COMPARISON: CR XR chest 1V portable [id number] 02/28/2020 2:38 PM FINDINGS: Lungs: Mild patchy airspace opacities (atelectasis and/or consolidation) at the right lung base, decreased from prior study. Mild patchy atelectasis at the left lung base, decreased from prior study. Pulmonary vasculature within normal limits. Pleural space: Large pleural plaque in the right mid and lower thorax, similar to prior study. No visible pneumothorax. Mild blunting of the right costophrenic angle, similar to prior study. This may represent pleural-parenchymal scarring or a small pleural effusion. Heart/Mediastinum: Heart size within normal limits. Bones/joints: No emergent findings identified. XR/XR chest 1V portable [id number] IMPRESSION: 1. Mild patchy airspace opacities (atelectasis and/or consolidation) at the right lung base, decreased from prior study. 2. Mild blunting of the right costophrenic angle, similar to prior study. This may represent pleural-parenchymal scarring or a small pleural effusion.
--- NOTE | 2020-05-15 18:09 | W.ED.URI ---
Documented by User: Victor M Moreno DO 05/21/20 13:49 HPI - URI/Sore Throat General: Chief Complaint: Altered Mental Status Stated Complaint: FAILURE TO THRIVE, COVID Time Seen by Provider: 05/15/20 17:43 History of Present Illness: HPI Narrative: 75 yo male [facility] with a report of 1 week ago having tested positive for COVID. He is developed significant respiratory distress today is difficult time maintaining his sats he is not eating or drinking anymore. He is listed as a full code. 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 Social History Smoking and tobacco status: former smoker Physical Exam HENMT: COMMON NORMALS: normocephalic, atraumatic and hearing grossly normal bilaterally HEAD & SCALP: normocephalic and atraumatic Neck/C-Spine: COMMON NORMALS: no JVD Resp: COMMON NORMALS: normal respiratory effort, No retractions and No use of accessory muscles AUSCULTATION: wheezes and diminished lung sounds Cardio: COMMON NORMALS: no JVD, regular rate, regular rhythm and No murmurs present (Cardio) RATE: regular rate RHYTHM: regular rhythm GI: COMMON NORMALS: Soft to palpation and No hepatosplenomegaly present AUSCULTATION: Yes normoactive bowel sounds PALPATION: Yes Soft to palpation, No Tenderness to palpation present (GI), No Guarding due to palpation present (GI) and Yes No hepatosplenomegaly present Extremity: COMMON NORMALS: normal to inspection, capillary refill normal, no clubbing, cyanosis or edema, no calf tenderness and no pedal edema Skin: COMMON NORMALS: no rashes or lesions noted GENERAL SKIN EXAM: no rashes or lesions noted Course Vital Signs: Vital signs: Vital Signs Temperature 97.4 F L 05/15/20 17:59 Pulse Rate 60 05/16/20 02:06 Respiratory Rate 12 05/16/20 02:06 Blood Pressure 120/65 05/16/20 02:06 Pulse Oximetry 99 05/16/20 02:06 MDM - URI/Sore Throat MDM Narrative: Medical decision making narrative: Care signed out to Dr. Abdi at change of shift see his note for definitive diagnosis and disposition. Lab Data: Labs: Lab Results 05/15/20 05/15/20 05/15/20 Range/Units 17:12 17:12 17:12 WBC 5.8 (4.0-10.0) 10^3/ uL RBC 4.94 (4.1-5.3) 10^6/u L Hgb 14.6 (11.7-16.6) g/dL Hct 43.3 (42.0-52.0) % MCV 87.7 (80-94) fL MCH 29.6 (28.0-34.0) pg MCHC 33.7 (30.0-36.0) g/dL RDW 12.4 (12.1-15.1) % Plt Count 193 (130-400) 10^3/c mm MPV 10.3 (7.4-10.4) fL Neut % (Auto) 80.2 % Lymph % (Auto) 9.4 % [place] % (Auto) 9.4 % Eos % (Auto) 0.3 % Baso % (Auto) 0.2 % Neut # (Auto) 4.67 (1.8-7.7) 10^3/u L Lymph # (Auto) 0.6 L (0.8-4.8) 10^3/u L [place] # (Auto) 0.6 (0.2-0.9) 10^3/u L Eos # (Auto) 0.0 (0.0-0.8) 10^3/u L Baso # (Auto) 0.0 (0.0-0.1) 10^3/u L Nucleated RBC % (a uto) 0 % Nucleated RBCs # 0.0 /100WBC Fibrinogen 678 H (174-498) mg/dL D-Dimer 1.80 H (0-0.59) ug/mIFE U Specimen Type Sample Site ABG pH (7.35-7.45) ABG pCO2 (35-45) mmHg ABG pO2 (80.0-100.0) mmH g ABG HCO3 (22-26) mmol/L ABG Base Excess (-2.0-2.0) mmol/ L Daniel Test Hematocrit (42-52) % O2 Delivery Device O2 Liters/Min % FiO2 % Tidal Volume PEEP cmH20 Heart Nurse ID Sodium 132 L (136-145) mmol/L Potassium 3.6 (3.5-5.1) mmol/L Chloride 96 L (98-107) mmol/L Carbon Dioxide 23 (22-29) mmol/L Anion Gap 16.6 (5-19) BUN 18 (8-23) mg/dL Creatinine 0.7 (0.7-1.2) mg/dL GFR Calculation Not Reportable Glucose 102 (65-115) mg/dL Calculated Osmolal ity 276 L (285-295) mOsm/k g Lactic Acid (0.5-2.2) mmol/L Calcium 8.7 (8.5-10.5) mg/dL Ferritin 2326 H (30-400) ng/mL Total Bilirubin 0.6 (0.15-1.2) mg/dL AST 27 (0-40) U/L ALT 20 (0-41) U/L Alkaline Phosphata se 60 (40-130) IU/L Lactate Dehydrogen ase 262 H (135-225) U/L Creatine Kinase 40 (39-308) U/L Troponin T Baselin e (0-15) ng/L Troponin T 120 Min [place] (0-15) ng/L Delta Troponin T (0-10) ABS# Troponin T Hi Sens 6Hr (0-15) ng/L Troponin T Hi Sens 6Hr Delta (0-12) ng/L C-Reactive Protein 183.6 H (0.0-4.9) mg/L Total Protein 6.7 (6.6-8.7) g/dL Albumin 3.6 (3.5-5.2) g/dL Globulin 3.1 (1.3-4.6) g/dL Procalcitonin 0.12 (0-0.5) ng/mL Urine Color (Yellow) Urine Appearance (CLEAR) Urine pH (5-7) Ur Specific Gravit y (1.005-1.030) Urine Protein (Negative) Urine Glucose (UA) (Normal) Urine Ketones (Negative) Urine Blood (Negative) Urine Nitrate (Negative) Urine Bilirubin (Negative) Urine Urobilinogen (Negative) mg/dL Ur Leukocyte [place] ase (Negative) Urine RBC (0-2) /hpf Urine WBC (0-5) /hpf Ur Squamous Epith Cells (0-5) /hpf Amorphous Sediment Urine Bacteria (NONE) /hpf Influenza Type A A g (Negative) Influenza Type B A g (Negative) SARS-CoV-2 Ag (Rap id) (Negative) 05/15/20 05/15/20 05/15/20 Range/Units 17:12 18:35 19:15 WBC (4.0-10.0) 10^3/ uL RBC (4.1-5.3) 10^6/u L Hgb (11.7-16.6) g/dL Hct (42.0-52.0) % MCV (80-94) fL MCH (28.0-34.0) pg MCHC (30.0-36.0) g/dL RDW (12.1-15.1) % Plt Count (130-400) 10^3/c mm MPV (7.4-10.4) fL Neut % (Auto) % Lymph % (Auto) % [place] % (Auto) % Eos % (Auto) % Baso % (Auto) % Neut # (Auto) (1.8-7.7) 10^3/u L Lymph # (Auto) (0.8-4.8) 10^3/u L [place] # (Auto) (0.2-0.9) 10^3/u L Eos # (Auto) (0.0-0.8) 10^3/u L Baso # (Auto) (0.0-0.1) 10^3/u L Nucleated RBC % (a uto) % Nucleated RBCs # /100WBC Fibrinogen (174-498) mg/dL D-Dimer (0-0.59) ug/mIFE U Specimen Type Sample Site ABG pH (7.35-7.45) ABG pCO2 (35-45) mmHg ABG pO2 (80.0-100.0) mmH g ABG HCO3 (22-26) mmol/L ABG Base Excess (-2.0-2.0) mmol/ L Daniel Test Hematocrit (42-52) % O2 Delivery Device O2 Liters/Min % FiO2 % Tidal Volume PEEP cmH20 Heart Nurse ID Sodium (136-145) mmol/L Potassium (3.5-5.1) mmol/L Chloride (98-107) mmol/L Carbon Dioxide (22-29) mmol/L Anion Gap (5-19) BUN (8-23) mg/dL Creatinine (0.7-1.2) mg/dL GFR Calculation Glucose (65-115) mg/dL Calculated Osmolal ity (285-295) mOsm/k g Lactic Acid 1.5 (0.5-2.2) mmol/L Calcium (8.5-10.5) mg/dL Ferritin (30-400) ng/mL Total Bilirubin (0.15-1.2) mg/dL AST (0-40) U/L ALT (0-41) U/L Alkaline Phosphata se (40-130) IU/L Lactate Dehydrogen ase (135-225) U/L Creatine Kinase (39-308) U/L Troponin T Baselin e 13 (0-15) ng/L Troponin T 120 Min [place] (0-15) ng/L Delta Troponin T (0-10) ABS# Troponin T Hi Sens 6Hr (0-15) ng/L Troponin T Hi Sens 6Hr Delta (0-12) ng/L C-Reactive Protein (0.0-4.9) mg/L Total Protein (6.6-8.7) g/dL Albumin (3.5-5.2) g/dL Globulin (1.3-4.6) g/dL Procalcitonin (0-0.5) ng/mL Urine Color (Yellow) Urine Appearance (CLEAR) Urine pH (5-7) Ur Specific Gravit y (1.005-1.030) Urine Protein (Negative) Urine Glucose (UA) (Normal) Urine Ketones (Negative) Urine Blood (Negative) Urine Nitrate (Negative) Urine Bilirubin (Negative) Urine Urobilinogen (Negative) mg/dL Ur Leukocyte [place] ase (Negative) Urine RBC (0-2) /hpf Urine WBC (0-5) /hpf Ur Squamous Epith Cells (0-5) /hpf Amorphous Sediment Urine Bacteria (NONE) /hpf Influenza Type A A g Negative (Negative) Influenza Type B A g Negative (Negative) SARS-CoV-2 Ag (Rap id) (Negative) 05/15/20 05/15/20 05/15/20 Range/Units 19:45 19:57 21:39 WBC (4.0-10.0) 10^3/ uL RBC (4.1-5.3) 10^6/u L Hgb (11.7-16.6) g/dL Hct (42.0-52.0) % MCV (80-94) fL MCH (28.0-34.0) pg MCHC (30.0-36.0) g/dL RDW (12.1-15.1) % Plt Count (130-400) 10^3/c mm MPV (7.4-10.4) fL Neut % (Auto) % Lymph % (Auto) % [place] % (Auto) % Eos % (Auto) % Baso % (Auto) % Neut # (Auto) (1.8-7.7) 10^3/u L Lymph # (Auto) (0.8-4.8) 10^3/u L [place] # (Auto) (0.2-0.9) 10^3/u L Eos # (Auto) (0.0-0.8) 10^3/u L Baso # (Auto) (0.0-0.1) 10^3/u L Nucleated RBC % (a uto) % Nucleated RBCs # /100WBC Fibrinogen (174-498) mg/dL D-Dimer (0-0.59) ug/mIFE U Specimen Type Arterial Sample Site Radial, right ABG pH 7.48 H (7.35-7.45) ABG pCO2 32.4 L (35-45) mmHg ABG pO2 48.3 L (80.0-100.0) mmH g ABG HCO3 24.1 (22-26) mmol/L ABG Base Excess 1.2 (-2.0-2.0) mmol/ L Daniel Test Pos Hematocrit 46.0 (42-52) % O2 Delivery Device Nc O2 Liters/Min 4.0 % FiO2 % Tidal Volume PEEP cmH20 Heart Nurse ID [place] Sodium (136-145) mmol/L Potassium (3.5-5.1) mmol/L Chloride (98-107) mmol/L Carbon Dioxide (22-29) mmol/L Anion Gap (5-19) BUN (8-23) mg/dL Creatinine (0.7-1.2) mg/dL GFR Calculation Glucose (65-115) mg/dL Calculated Osmolal ity (285-295) mOsm/k g Lactic Acid (0.5-2.2) mmol/L Calcium (8.5-10.5) mg/dL Ferritin (30-400) ng/mL Total Bilirubin (0.15-1.2) mg/dL AST (0-40) U/L ALT (0-41) U/L Alkaline Phosphata se (40-130) IU/L Lactate Dehydrogen ase (135-225) U/L Creatine Kinase (39-308) U/L Troponin T Baselin e (0-15) ng/L Troponin T 120 Min [place] 13.42 (0-15) ng/L Delta Troponin T 0.42 (0-10) ABS# Troponin T Hi Sens 6Hr (0-15) ng/L Troponin T Hi Sens 6Hr Delta (0-12) ng/L C-Reactive Protein (0.0-4.9) mg/L Total Protein (6.6-8.7) g/dL Albumin (3.5-5.2) g/dL Globulin (1.3-4.6) g/dL Procalcitonin (0-0.5) ng/mL Urine Color (Yellow) Urine Appearance (CLEAR) Urine pH (5-7) Ur Specific Gravit y (1.005-1.030) Urine Protein (Negative) Urine Glucose (UA) (Normal) Urine Ketones (Negative) Urine Blood (Negative) Urine Nitrate (Negative) Urine Bilirubin (Negative) Urine Urobilinogen (Negative) mg/dL Ur Leukocyte [place] ase (Negative) Urine RBC (0-2) /hpf Urine WBC (0-5) /hpf Ur Squamous Epith Cells (0-5) /hpf Amorphous Sediment Urine Bacteria (NONE) /hpf Influenza Type A A g (Negative) Influenza Type B A g (Negative) SARS-CoV-2 Ag (Rap id) Positive H (Negative) 05/15/20 05/16/20 05/16/20 Range/Units 21:39 01:07 01:10 WBC (4.0-10.0) 10^3/ uL RBC (4.1-5.3) 10^6/u L Hgb (11.7-16.6) g/dL Hct (42.0-52.0) % MCV (80-94) fL MCH (28.0-34.0) pg MCHC (30.0-36.0) g/dL RDW (12.1-15.1) % Plt Count (130-400) 10^3/c mm MPV (7.4-10.4) fL Neut % (Auto) % Lymph % (Auto) % [place] % (Auto) % Eos % (Auto) % Baso % (Auto) % Neut # (Auto) (1.8-7.7) 10^3/u L Lymph # (Auto) (0.8-4.8) 10^3/u L [place] # (Auto) (0.2-0.9) 10^3/u L Eos # (Auto) (0.0-0.8) 10^3/u L Baso # (Auto) (0.0-0.1) 10^3/u L Nucleated RBC % (a uto) % Nucleated RBCs # /100WBC Fibrinogen (174-498) mg/dL D-Dimer (0-0.59) ug/mIFE U Specimen Type Arterial Sample Site Radial, left ABG pH 7.36 (7.35-7.45) ABG pCO2 35.6 (35-45) mmHg ABG pO2 282.0 H (80.0-100.0) mmH g ABG HCO3 20.2 L (22-26) mmol/L ABG Base Excess -4.5 L (-2.0-2.0) mmol/ L Daniel Test Pos Hematocrit 40.8 L (42-52) % O2 Delivery Device Vent O2 Liters/Min % FiO2 100.0 % Tidal Volume 0.55 PEEP 6.0 cmH20 Heart Nurse ID [place] Sodium (136-145) mmol/L Potassium (3.5-5.1) mmol/L Chloride (98-107) mmol/L Carbon Dioxide (22-29) mmol/L Anion Gap (5-19) BUN (8-23) mg/dL Creatinine (0.7-1.2) mg/dL GFR Calculation Glucose (65-115) mg/dL Calculated Osmolal ity (285-295) mOsm/k g Lactic Acid (0.5-2.2) mmol/L Calcium (8.5-10.5) mg/dL Ferritin (30-400) ng/mL Total Bilirubin (0.15-1.2) mg/dL AST (0-40) U/L ALT (0-41) U/L Alkaline Phosphata se (40-130) IU/L Lactate Dehydrogen ase (135-225) U/L Creatine Kinase (39-308) U/L Troponin T Baselin e (0-15) ng/L Troponin T 120 Min [place] (0-15) ng/L Delta Troponin T (0-10) ABS# Troponin T Hi Sens 6Hr 9.72 (0-15) ng/L Troponin T Hi Sens 6Hr Delta -3.28 L (0-12) ng/L C-Reactive Protein (0.0-4.9) mg/L Total Protein (6.6-8.7) g/dL Albumin (3.5-5.2) g/dL Globulin (1.3-4.6) g/dL Procalcitonin (0-0.5) ng/mL Urine Color Yellow (Yellow) Urine Appearance Clear (CLEAR) Urine pH 5 (5-7) Ur Specific Gravit y 1.002 L (1.005-1.030) Urine Protein Trace (Negative) Urine Glucose (UA) Norm (Normal) Urine Ketones 1+ H (Negative) Urine Blood 2+ H (Negative) Urine Nitrate Negative (Negative) Urine Bilirubin 1+ H (Negative) Urine Urobilinogen Norm (Negative) mg/dL Ur Leukocyte [place] ase 2+ H (Negative) Urine RBC 0-4 H (0-2) /hpf Urine WBC >100 H (0-5) /hpf Ur Squamous Epith Cells 0-4 H (0-5) /hpf Amorphous Sediment Not Reportable Urine Bacteria 1+ H (NONE) /hpf Influenza Type A A g (Negative) Influenza Type B A g (Negative) SARS-CoV-2 Ag (Rap id) (Negative) Discharge Plan Discharge Patient Disposition: Xfer Short-Term Hosp Clinical Impression: Acute UTI, COVID-19 virus infection Sepsis Qualifiers: Sepsis type: sepsis due to unspecified organism Sepsis acute organ dysfunction status: unspecified Qualified Code(s): A41.9 - Sepsis, unspecified organism Condition: Stable Referrals: Blayne Hinojosa DO [Primary Care Provider] - Discharge Date/Time: 05/16/20 02:35 Sign Out Sign Out Data: Patient Sign Out occurred on 05/15/20 at 18:23. Patient's care was discussed, and care was transferred from to Yessy Gold. 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 Social History Smoking and tobacco status: former smoker Physical Exam Const: COMMON NORMALS: no acute distress, no limitations and alert GENERAL APPEARANCE: cooperative HENMT: COMMON NORMALS: normocephalic, atraumatic, external ears normal, EAC's normal and Normal external nose present HEAD & SCALP: normal to inspection, normocephalic and atraumatic FACE & SINUS: normal facial exam and face symmetric NOSE: Normal external nose present and Normal nares present EXTERNAL EAR: Yes external ears normal EXTERNAL AUDITORY CANAL: EAC's normal MOUTH: Normal oral and palatal mucosa present, lip normal and tongue normal Eye: COMMON NORMALS: Equal, round and reactive pupils present and conjunctivae normal GENERAL EYE: appearance normal, both eyes and all related structures ALIGNMENT: Yes alignment normal PERIORBITAL: periorbital findings normal EYELID: eyelids normal CONJUNCTIVA: Yes conjunctivae normal SCLERA: sclerae normal PUPIL: Yes Equal, round and reactive pupils present Neck/C-Spine: COMMON NORMALS: full ROM, no lymphadenopathy, supple, no meningeal signs and no JVD GENERAL: Yes normal visual inspection and Yes trachea midline Chest: COMMONS NORMALS: normal inspection of the chest and normal palpation of entire chest wall Resp: COMMON NORMALS: normal respiratory effort, No retractions, No use of accessory muscles and clear to auscultation bilaterally EFFORT & INSPECTION: Yes able to speak in complete sentences and Yes symmetric chest movement AUSCULTATION: clear to auscultation bilaterally, no crackles, no rales, no rhonchi and no wheezes Cardio: COMMON NORMALS: no JVD, regular rate, regular rhythm, S1 normal heart sound present and S2 normal heart sound present RATE: regular rate RHYTHM: regular rhythm HEART SOUNDS: S1 normal heart sound present, S2 normal heart sound present, no click, no gallops, no murmurs and no rubs GI: COMMON NORMALS: Soft to palpation and No hepatosplenomegaly present PALPATION: Yes Soft to palpation, No Tenderness to palpation present (GI), No Guarding due to palpation present (GI), No Rigid due to palpation, Yes No hepatosplenomegaly present, No Hernia present, No Palpable mass present and No Pulsatile mass present : COMMON NORMALS: Yes no CVA tenderness BLADDER/KIDNEY EXAM: Yes no CVA tenderness Back/Pelvis: COMMON NORMALS: no CVA tenderness, thoracic and lumbar spine normal to inspection, no thoracic nor lumbar tenderness and thoraco-lumbar ROM normal Extremity: COMMON NORMALS: normal to inspection, full ROM, capillary refill normal, no joint enlargement, no clubbing, cyanosis or edema and no calf tenderness Neuro: DIONNE COMA SCALE: document GCS findings [place] coma scale eye opening: To sound Dionne coma scale verbal response: Confused Dionne coma scale motor response: Obey commands Dionne coma scale total score: 13 COMMON NORMALS: CN's II-XII intact bilaterally, moves all extremities, no focal motor deficits and no sensory deficits noted SENSORIUM/ORIENTATION: Yes alert MENINGEAL SIGNS: Yes no meningeal signs SPEECH: speech normal Skin: COMMON NORMALS: no rashes or lesions noted, turgor normal, no jaundice, no petechiae and no mottling GENERAL SKIN EXAM: no rashes or lesions noted and turgor normal Procedures Intubation Time out performed: Yes sedative: Etomidate Mg Given: 20 paralytic: Succinylcholine Mg Given: 150 Laryngoscope: fiber optic video scope ET Tube Size: 8 ET Tube Uncuffed: Yes Tube Secured Depth (cm): 26 Tube Secured Location: lips Tube Placement Confirmation: visualized tube passing through cords Patient Tolerated Procedure: well and no complications Intubation Complications: none Course Vital Signs: Vital signs: Vital Signs Temperature 97.4 F L 05/15/20 17:59 Pulse Rate 60 05/16/20 02:06 Respiratory Rate 12 05/16/20 02:06 Blood Pressure 120/65 05/16/20 02:06 Pulse Oximetry 99 05/16/20 02:06 MDM - URI/Sore Throat MDM Narrative: Medical decision making narrative: 2228 -patient maintains a GCS of 13 at this time. On 6 L nasal cannula oxygen his pulse ox is 90% his heart rate is controlled and his blood pressure is stable. We do not have any VICU beds available at this time. Patient have been given her Dems of year, Decadevelyn Zosyn to cover for possible aspiration as well. We will begin to look for a place to transfer him as we do not have an appropriate bed available for him here. 230 -Case reviewed with Dr. Jaeger out of [place]. He agrees to accept the patient and with a therapy up to this point. He agrees as the patient has a high likelihood of deterioration and is requiring more more oxygen that he should be intubated prior to transfer. Patient started off at 2 L now is necessitating 10 L nasal cannula oxygen to maintain a pulse oximetry above 90%. His last increase coming within just this last half hour. His work of breathing has increased although his mentation has not declined. 0125 -patient's post intubation ABG looks good. I will go ahead and transfer the patient for definitive care. Lab Data: Attestation: I reviewed the patient's lab results. Labs: Lab Results 05/15/20 05/15/20 05/15/20 Range/Units 17:12 17:12 17:12 WBC 5.8 (4.0-10.0) 10^3/ uL RBC 4.94 (4.1-5.3) 10^6/u L Hgb 14.6 (11.7-16.6) g/dL Hct 43.3 (42.0-52.0) % MCV 87.7 (80-94) fL MCH 29.6 (28.0-34.0) pg MCHC 33.7 (30.0-36.0) g/dL RDW 12.4 (12.1-15.1) % Plt Count 193 (130-400) 10^3/c mm MPV 10.3 (7.4-10.4) fL Neut % (Auto) 80.2 % Lymph % (Auto) 9.4 % [place] % (Auto) 9.4 % Eos % (Auto) 0.3 % Baso % (Auto) 0.2 % Neut # (Auto) 4.67 (1.8-7.7) 10^3/u L Lymph # (Auto) 0.6 L (0.8-4.8) 10^3/u L [place] # (Auto) 0.6 (0.2-0.9) 10^3/u L Eos # (Auto) 0.0 (0.0-0.8) 10^3/u L Baso # (Auto) 0.0 (0.0-0.1) 10^3/u L Nucleated RBC % (a uto) 0 % Nucleated RBCs # 0.0 /100WBC Fibrinogen 678 H (174-498) mg/dL D-Dimer 1.80 H (0-0.59) ug/mIFE U Specimen Type Sample Site ABG pH (7.35-7.45) ABG pCO2 (35-45) mmHg ABG pO2 (80.0-100.0) mmH g ABG HCO3 (22-26) mmol/L ABG Base Excess (-2.0-2.0) mmol/ L Daniel Test Hematocrit (42-52) % O2 Delivery Device O2 Liters/Min % FiO2 % Tidal Volume PEEP cmH20 Heart Nurse ID Sodium 132 L (136-145) mmol/L Potassium 3.6 (3.5-5.1) mmol/L Chloride 96 L (98-107) mmol/L Carbon Dioxide 23 (22-29) mmol/L Anion Gap 16.6 (5-19) BUN 18 (8-23) mg/dL Creatinine 0.7 (0.7-1.2) mg/dL GFR Calculation Not Reportable Glucose 102 (65-115) mg/dL Calculated Osmolal ity 276 L (285-295) mOsm/k g Lactic Acid (0.5-2.2) mmol/L Calcium 8.7 (8.5-10.5) mg/dL Ferritin 2326 H (30-400) ng/mL Total Bilirubin 0.6 (0.15-1.2) mg/dL AST 27 (0-40) U/L ALT 20 (0-41) U/L Alkaline Phosphata se 60 (40-130) IU/L Lactate Dehydrogen ase 262 H (135-225) U/L Creatine Kinase 40 (39-308) U/L Troponin T Baselin e (0-15) ng/L Troponin T 120 Min [place] (0-15) ng/L Delta Troponin T (0-10) ABS# Troponin T Hi Sens 6Hr (0-15) ng/L Troponin T Hi Sens 6Hr Delta (0-12) ng/L C-Reactive Protein 183.6 H (0.0-4.9) mg/L Total Protein 6.7 (6.6-8.7) g/dL Albumin 3.6 (3.5-5.2) g/dL Globulin 3.1 (1.3-4.6) g/dL Procalcitonin 0.12 (0-0.5) ng/mL Urine Color (Yellow) Urine Appearance (CLEAR) Urine pH (5-7) Ur Specific Gravit y (1.005-1.030) Urine Protein (Negative) Urine Glucose (UA) (Normal) Urine Ketones (Negative) Urine Blood (Negative) Urine Nitrate (Negative) Urine Bilirubin (Negative) Urine Urobilinogen (Negative) mg/dL Ur Leukocyte [place] ase (Negative) Urine RBC (0-2) /hpf Urine WBC (0-5) /hpf Ur Squamous Epith Cells (0-5) /hpf Amorphous Sediment Urine Bacteria (NONE) /hpf Influenza Type A A g (Negative) Influenza Type B A g (Negative) SARS-CoV-2 Ag (Rap id) (Negative) 05/15/20 05/15/20 05/15/20 Range/Units 17:12 18:35 19:15 WBC (4.0-10.0) 10^3/ uL RBC (4.1-5.3) 10^6/u L Hgb (11.7-16.6) g/dL Hct (42.0-52.0) % MCV (80-94) fL MCH (28.0-34.0) pg MCHC (30.0-36.0) g/dL RDW (12.1-15.1) % Plt Count (130-400) 10^3/c mm MPV (7.4-10.4) fL Neut % (Auto) % Lymph % (Auto) % [place] % (Auto) % Eos % (Auto) % Baso % (Auto) % Neut # (Auto) (1.8-7.7) 10^3/u L Lymph # (Auto) (0.8-4.8) 10^3/u L [place] # (Auto) (0.2-0.9) 10^3/u L Eos # (Auto) (0.0-0.8) 10^3/u L Baso # (Auto) (0.0-0.1) 10^3/u L Nucleated RBC % (a uto) % Nucleated RBCs # /100WBC Fibrinogen (174-498) mg/dL D-Dimer (0-0.59) ug/mIFE U Specimen Type Sample Site ABG pH (7.35-7.45) ABG pCO2 (35-45) mmHg ABG pO2 (80.0-100.0) mmH g ABG HCO3 (22-26) mmol/L ABG Base Excess (-2.0-2.0) mmol/ L Daniel Test Hematocrit (42-52) % O2 Delivery Device O2 Liters/Min % FiO2 % Tidal Volume PEEP cmH20 Heart Nurse ID Sodium (136-145) mmol/L Potassium (3.5-5.1) mmol/L Chloride (98-107) mmol/L Carbon Dioxide (22-29) mmol/L Anion Gap (5-19) BUN (8-23) mg/dL Creatinine (0.7-1.2) mg/dL GFR Calculation Glucose (65-115) mg/dL Calculated Osmolal ity (285-295) mOsm/k g Lactic Acid 1.5 (0.5-2.2) mmol/L Calcium (8.5-10.5) mg/dL Ferritin (30-400) ng/mL Total Bilirubin (0.15-1.2) mg/dL AST (0-40) U/L ALT (0-41) U/L Alkaline Phosphata se (40-130) IU/L Lactate Dehydrogen ase (135-225) U/L Creatine Kinase (39-308) U/L Troponin T Baselin e 13 (0-15) ng/L Troponin T 120 Min [place] (0-15) ng/L Delta Troponin T (0-10) ABS# Troponin T Hi Sens 6Hr (0-15) ng/L Troponin T Hi Sens 6Hr Delta (0-12) ng/L C-Reactive Protein (0.0-4.9) mg/L Total Protein (6.6-8.7) g/dL Albumin (3.5-5.2) g/dL Globulin (1.3-4.6) g/dL Procalcitonin (0-0.5) ng/mL Urine Color (Yellow) Urine Appearance (CLEAR) Urine pH (5-7) Ur Specific Gravit y (1.005-1.030) Urine Protein (Negative) Urine Glucose (UA) (Normal) Urine Ketones (Negative) Urine Blood (Negative) Urine Nitrate (Negative) Urine Bilirubin (Negative) Urine Urobilinogen (Negative) mg/dL Ur Leukocyte [place] ase (Negative) Urine RBC (0-2) /hpf Urine WBC (0-5) /hpf Ur Squamous Epith Cells (0-5) /hpf Amorphous Sediment Urine Bacteria (NONE) /hpf Influenza Type A A g Negative (Negative) Influenza Type B A g Negative (Negative) SARS-CoV-2 Ag (Rap id) (Negative) 05/15/20 05/15/20 05/15/20 Range/Units 19:45 19:57 21:39 WBC (4.0-10.0) 10^3/ uL RBC (4.1-5.3) 10^6/u L Hgb (11.7-16.6) g/dL Hct (42.0-52.0) % MCV (80-94) fL MCH (28.0-34.0) pg MCHC (30.0-36.0) g/dL RDW (12.1-15.1) % Plt Count (130-400) 10^3/c mm MPV (7.4-10.4) fL Neut % (Auto) % Lymph % (Auto) % [place] % (Auto) % Eos % (Auto) % Baso % (Auto) % Neut # (Auto) (1.8-7.7) 10^3/u L Lymph # (Auto) (0.8-4.8) 10^3/u L [place] # (Auto) (0.2-0.9) 10^3/u L Eos # (Auto) (0.0-0.8) 10^3/u L Baso # (Auto) (0.0-0.1) 10^3/u L Nucleated RBC % (a uto) % Nucleated RBCs # /100WBC Fibrinogen (174-498) mg/dL D-Dimer (0-0.59) ug/mIFE U Specimen Type Arterial Sample Site Radial, right ABG pH 7.48 H (7.35-7.45) ABG pCO2 32.4 L (35-45) mmHg ABG pO2 48.3 L (80.0-100.0) mmH g ABG HCO3 24.1 (22-26) mmol/L ABG Base Excess 1.2 (-2.0-2.0) mmol/ L Daniel Test Pos Hematocrit 46.0 (42-52) % O2 Delivery Device Nc O2 Liters/Min 4.0 % FiO2 % Tidal Volume PEEP cmH20 Heart Nurse ID [place] Sodium (136-145) mmol/L Potassium (3.5-5.1) mmol/L Chloride (98-107) mmol/L Carbon Dioxide (22-29) mmol/L Anion Gap (5-19) BUN (8-23) mg/dL Creatinine (0.7-1.2) mg/dL GFR Calculation Glucose (65-115) mg/dL Calculated Osmolal ity (285-295) mOsm/k g Lactic Acid (0.5-2.2) mmol/L Calcium (8.5-10.5) mg/dL Ferritin (30-400) ng/mL Total Bilirubin (0.15-1.2) mg/dL AST (0-40) U/L ALT (0-41) U/L Alkaline Phosphata se (40-130) IU/L Lactate Dehydrogen ase (135-225) U/L Creatine Kinase (39-308) U/L Troponin T Baselin e (0-15) ng/L Troponin T 120 Min [place] 13.42 (0-15) ng/L Delta Troponin T 0.42 (0-10) ABS# Troponin T Hi Sens 6Hr (0-15) ng/L Troponin T Hi Sens 6Hr Delta (0-12) ng/L C-Reactive Protein (0.0-4.9) mg/L Total Protein (6.6-8.7) g/dL Albumin (3.5-5.2) g/dL Globulin (1.3-4.6) g/dL Procalcitonin (0-0.5) ng/mL Urine Color (Yellow) Urine Appearance (CLEAR) Urine pH (5-7) Ur Specific Gravit y (1.005-1.030) Urine Protein (Negative) Urine Glucose (UA) (Normal) Urine Ketones (Negative) Urine Blood (Negative) Urine Nitrate (Negative) Urine Bilirubin (Negative) Urine Urobilinogen (Negative) mg/dL Ur Leukocyte [place] ase (Negative) Urine RBC (0-2) /hpf Urine WBC (0-5) /hpf Ur Squamous Epith Cells (0-5) /hpf Amorphous Sediment Urine Bacteria (NONE) /hpf Influenza Type A A g (Negative) Influenza Type B A g (Negative) SARS-CoV-2 Ag (Rap id) Positive H (Negative) 05/15/20 05/16/20 05/16/20 Range/Units 21:39 01:07 01:10 WBC (4.0-10.0) 10^3/ uL RBC (4.1-5.3) 10^6/u L Hgb (11.7-16.6) g/dL Hct (42.0-52.0) % MCV (80-94) fL MCH (28.0-34.0) pg MCHC (30.0-36.0) g/dL RDW (12.1-15.1) % Plt Count (130-400) 10^3/c mm MPV (7.4-10.4) fL Neut % (Auto) % Lymph % (Auto) % [place] % (Auto) % Eos % (Auto) % Baso % (Auto) % Neut # (Auto) (1.8-7.7) 10^3/u L Lymph # (Auto) (0.8-4.8) 10^3/u L [place] # (Auto) (0.2-0.9) 10^3/u L Eos # (Auto) (0.0-0.8) 10^3/u L Baso # (Auto) (0.0-0.1) 10^3/u L Nucleated RBC % (a uto) % Nucleated RBCs # /100WBC Fibrinogen (174-498) mg/dL D-Dimer (0-0.59) ug/mIFE U Specimen Type Arterial Sample Site Radial, left ABG pH 7.36 (7.35-7.45) ABG pCO2 35.6 (35-45) mmHg ABG pO2 282.0 H (80.0-100.0) mmH g ABG HCO3 20.2 L (22-26) mmol/L ABG Base Excess -4.5 L (-2.0-2.0) mmol/ L Daniel Test Pos Hematocrit 40.8 L (42-52) % O2 Delivery Device Vent O2 Liters/Min % FiO2 100.0 % Tidal Volume 0.55 PEEP 6.0 cmH20 Heart Nurse ID Harkr Sodium (136-145) mmol/L Potassium (3.5-5.1) mmol/L Chloride (98-107) mmol/L Carbon Dioxide (22-29) mmol/L Anion Gap (5-19) BUN (8-23) mg/dL Creatinine (0.7-1.2) mg/dL GFR Calculation Glucose (65-115) mg/dL Calculated Osmolal ity (285-295) mOsm/k g Lactic Acid (0.5-2.2) mmol/L Calcium (8.5-10.5) mg/dL Ferritin (30-400) ng/mL Total Bilirubin (0.15-1.2) mg/dL AST (0-40) U/L ALT (0-41) U/L Alkaline Phosphata se (40-130) IU/L Lactate Dehydrogen ase (135-225) U/L Creatine Kinase (39-308) U/L Troponin T Baselin e (0-15) ng/L Troponin T 120 Min [place] (0-15) ng/L Delta Troponin T (0-10) ABS# Troponin T Hi Sens 6Hr 9.72 (0-15) ng/L Troponin T Hi Sens 6Hr Delta -3.28 L (0-12) ng/L C-Reactive Protein (0.0-4.9) mg/L Total Protein (6.6-8.7) g/dL Albumin (3.5-5.2) g/dL Globulin (1.3-4.6) g/dL Procalcitonin (0-0.5) ng/mL Urine Color Yellow (Yellow) Urine Appearance Clear (CLEAR) Urine pH 5 (5-7) Ur Specific Gravit y 1.002 L (1.005-1.030) Urine Protein Trace (Negative) Urine Glucose (UA) Norm (Normal) Urine Ketones 1+ H (Negative) Urine Blood 2+ H (Negative) Urine Nitrate Negative (Negative) Urine Bilirubin 1+ H (Negative) Urine Urobilinogen Norm (Negative) mg/dL Ur Leukocyte [place] 2+ H (Negative) Urine RBC 0-4 H (0-2) /hpf Urine WBC >100 H (0-5) /hpf Ur Squamous Epith Cells 0-4 H (0-5) /hpf Amorphous Sediment Not Reportable Urine Bacteria 1+ H (NONE) /hpf Influenza Type A A g (Negative) Influenza Type B A g (Negative) SARS-CoV-2 Ag (Rap id) (Negative) Imaging Data^: CXR: Attestation: I personally reviewed and interpreted this imaging study as follows: My impression: Right-sided scarring noted similar to previous. CT Head: Radiologist's impression: [place] [address] CT Scan Report Signed Patient: Zack Babb Unit #: [id number] : 11/24/1953 Age/Sex: 66 / M ADM Date: 05/15/20 Loc: ER Room/Bed: Attending Dr: Ordering Provider/Ordering MD: Victor M Moreno DO Date of Service: 05/15/20 Procedure(s): CT angio chest PE protcl [id number] Accession Number(s): [id number] Report Number: [id number] PROCEDURE INFORMATION: Exam: CT Angiography Chest With Contrast Exam date and time: 05/15/2020 7:20 PM Age: 66 years old Clinical indication: Shortness of breath; Prior surgery; Additional info: Dyspnea TECHNIQUE: Imaging protocol: Computed tomographic angiography of the chest with intravenous contrast. 3D rendering (Not supervised by radiologist): MIP and/or 3D reconstructed images were created by the technologist. Radiation optimization: All CT scans at this facility use at least one of these dose optimization techniques: automated exposure control; mA and/or kV adjustment per patient size (includes targeted exams where dose is matched to clinical indication); or iterative reconstruction. Contrast material: OMNI 350; Contrast volume: 95 ml; Contrast route: INTRAVENOUS (IV); COMPARISON: CTA Chest-Pulmonary Emb [id number] 06/12/2019 11:58 PM RADIATION DOSE METRICS: Total DLP (mGy-cm): 664.37 FINDINGS: Pulmonary arteries: Normal. No pulmonary emboli. Aorta: Unremarkable. No aortic aneurysm. No aortic dissection. Great vessels off aortic arch: There is an aberrant right subclavian artery. Lungs: There is a calcified granuloma in the right lower lobe of the lung. No lung mass or significant consolidation. Pleural space: Unremarkable. No pneumothorax. No pleural effusion. Heart: Cardiomegaly is identified. Lymph nodes: There are partially calcified bilateral thoracic hilar lymph nodes. There is also calcification in the right paratracheal, AP window mediastinum. Bones/joints: Degenerative change is identified in the spine. There is no evidence for acute fracture or malalignment. Soft tissues: Unremarkable. CT/CT angio chest PE protcl [id number] IMPRESSION: There are no acute concerning abnormalities. Radiation Dose CTDIVOL = (mGy): DLP = 664.37 (mGy-cm) Dictated By: Lindsay Fonseca MD Signed By: Lindsay Fonseca MD Signed Date/Time: 05/15/201999 DD/ 58 CT Chest: Radiologist's impression: [address] [address] [address] Scan Report Signed Patient: Meir Hopson Unit #: [id number] : 1945 Age/Sex: 75 / M ADM Date: 05/15/20 Loc: ER Room/Bed: Attending Dr: Ordering Provider/Ordering MD: Yessy Gold DO Date of Service: 05/15/20 Procedure(s): CT angio chest PE protcl [id number] Accession Number(s): [id number] Report Number: [id number] PROCEDURE INFORMATION: Exam: CT Angiography Chest With Contrast Exam date and time: 05/15/2020 8:05 PM Age: 75 years old Clinical indication: Shortness of breath; Prior surgery; Surgery type: Stents; Additional info: Hypoxia TECHNIQUE: Imaging protocol: Computed tomographic angiography of the chest with intravenous contrast. 3D rendering (Not supervised by radiologist): MIP and/or 3D reconstructed images were created by the technologist. Radiation optimization: All CT scans at this facility use at least one of these dose optimization techniques: automated exposure control; mA and/or kV adjustment per patient size (includes targeted exams where dose is matched to clinical indication); or iterative reconstruction. Contrast material: VISI 320; Contrast volume: 88 ml; Contrast route: INTRAVENOUS (IV); COMPARISON: CT angio chest w abd pel w con 02/27/2020 7:51 PM RADIATION DOSE METRICS: Total DLP (mGy-cm): 629.92 FINDINGS: Pulmonary arteries: No filling defects identified in the pulmonary arteries. Some artery branches in the lower lobes are obscured due to breathing motion artifact. Aorta: Stable mild aneurysmal dilatation of the ascending thoracic aorta measuring 4.4 cm. No dissection. Lungs: Severe centrilobular emphysema. Scarring in the right lung apex. Calcified granuloma in the left upper lobe. Stable subpleural opacities along the bilateral major fissures and in the posterior left lower lobe. Increased consolidation in the posterior right lower lobe. Pleural space: Chronic right pleural thickening and calcifications. Heart: Unremarkable. No cardiomegaly. No pericardial effusion. Lymph nodes: Multiple subcentimeter mediastinal and hilar lymph nodes are most likely reactive. Calcified left hilar lymph nodes. Liver: Calcified granulomas in the liver. Kidneys and ureters: Benign cyst in the right kidney, Hounsfield units less than 20. No follow-up is recommended. Bones/joints: Stable L1 compression fracture. Soft tissues: Unremarkable. CT/CT angio chest PE protcl [id number] IMPRESSION: 1. No evidence for pulmonary embolus. 2. Increased consolidation in the posterior right lower lobe could represent pneumonia or aspiration. 3. Emphysema. COMMENTS: Consistent with the [place]'s Incidental Findings Committee white paper (J Am Ann-Marie Radiol 2018): Any incidental renal lesion less than 1 cm or classified as too small to characterize, or any incidental cystic renal lesion characterized as simple-appearing, is likely benign. No follow-up imaging is recommended for these lesions per consensus recommendations based on imaging criteria. Radiation Dose CTDIVOL = (mGy): DLP = 629.92 (mGy-cm) Dictated By: Juan Coto Signed By: Juan Coto Signed Date/Time: 05/15/202054 DD/ 54 Repeat CXR: Attestation: I personally reviewed and interpreted this imaging study as follows: My impression: ET tube with good placement. No acute findings. Right lower lobe filtrate slightly increased from previous. EKG Data^: EKG 1: Attestation: I personally reviewed and interpreted this EKG as follows: EKG interpretation date: 05/15/20 EKG interpretation time: 20:05 Interpretation: Normal sinus rhythm at 82 beats a minute, left axis deviation,, normal intervals, no acute ST-T wave changes. Discharge Plan Discharge Patient Disposition: Xfer Short-Term Hosp Clinical Impression: Acute UTI, COVID-19 virus infection Sepsis Qualifiers: Sepsis type: sepsis due to unspecified organism Sepsis acute organ dysfunction status: unspecified Qualified Code(s): A41.9 - Sepsis, unspecified organism Condition: Stable Referrals: Blayne Hinojosa DO [Primary Care Provider] - Discharge Date/Time: 05/16/20 02:35 Sign Out Sign Out Data: Patient Sign Out occurred on 05/15/20 at 18:23. Patient's care was discussed, and care was transferred from to [facility]. Coding Level of Care Code ED Cryptographic Clerk for Chg Fwd Exam Comprehensive
[2020-05-15 18:38] LABS: Basophils % 0.2 %; Eosinophils % 0.3 %; Hematocrit 43.3 % (42.0-52.0); Hemoglobin 14.6 g/dL (11.7-16.6); Lymphocytes # 0.6 10^3/uL (0.8-4.8); Lymphocytes % 9.4 %; Mean Corpuscular HGB Conc 33.7 g/dL (30.0-36.0); Mean Corpuscular Hemoglobin 29.6 pg (28.0-34.0); Mean Corpuscular Volume 87.7 fL (80-94); Mean Platelet Volume 10.3 fL (7.4-10.4); Monocytes # 0.6 10^3/uL (0.2-0.9); Monocytes % 9.4 %; Neutrophils # 4.67 10^3/uL (1.8-7.7); Neutrophils % 80.2 %; Nucleated Red Blood Cells % 0 %; Platelet Count 193 10^3/cmm (130-400); Red Blood Count 4.94 10^6/uL (4.1-5.3); Red Cell Distribution Width 12.4 % (12.1-15.1); White Blood Count 5.8 10^3/uL (4.0-10.0)
[2020-05-15 18:49] LABS: Fibrinogen 678 mg/dL (174-498)
[2020-05-15 19:02] LABS: Procalcitonin 0.12 ng/mL (0-0.5)
[2020-05-15 19:10] LABS: Lactic Sepsis W/Reflex 1.5 mmol/L (0.5-2.2)
[2020-05-15] MEDS: dexamethasone 4 mg/mL INJ 6 MG IVP (19:11)
[2020-05-15 19:13] LABS: Alanine Aminotransferase 20 U/L (0-41); Albumin Level 3.6 g/dL (3.5-5.2); Alkaline Phosphatase 60 IU/L (40-130); Anion Gap 16.6 (5-19); Aspartate Amino Transferase 27 U/L (0-40); Blood Urea Nitrogen 18 mg/dL (8-23); C Reactive Protein 183.6 mg/L (0.0-4.9); Calcium 8.7 mg/dL (8.5-10.5); Carbon Dioxide 23 mmol/L (22-29); Chloride 96 mmol/L (98-107); Creatine Phosphokinase 40 U/L (39-308); Globulin 3.1 g/dL (1.3-4.6); Glucose 102 mg/dL (65-115); Lactate Dehydrogenase 262 U/L (135-225); Osmolality Calculated 276 mOsm/kg (285-295); Potassium 3.6 mmol/L (3.5-5.1); Sodium 132 mmol/L (136-145); Total Bilirubin 0.6 mg/dL (0.15-1.2); Total Protein 6.7 g/dL (6.6-8.7)
[2020-05-15 19:29] LABS: Ferritin 2326 ng/mL (30-400)
--- NOTE | 2020-05-15 19:32 | PC.NURSE ---
Pt was covid + last Thursday.
--- NOTE | 2020-05-15 19:35 | CTR_ITS ---
PROCEDURE INFORMATION: Exam: CT Head Without Contrast Exam date and time: 05/15/2020 8:05 PM Age: 75 years old Clinical indication: Altered mental status/memory loss; Additional info: Hypoxia TECHNIQUE: Imaging protocol: Computed tomography of the head without contrast. Radiation optimization: All CT scans at this facility use at least one of these dose optimization techniques: automated exposure control; mA and/or kV adjustment per patient size (includes targeted exams where dose is matched to clinical indication); or iterative reconstruction. COMPARISON: CT head wo con* [id number] 01/26/2020 8:53 AM RADIATION DOSE METRICS: Total DLP (mGy-cm): 973.27 FINDINGS: There is moderate generalized atrophy. There are mild areas of decreased attenuation in the periventricular white matter which is nonspecific but likely relates to small vessel ischemic change. There is no evidence for acute infarct. There is no evidence for mass. There is no hemorrhage. There are no extra-axial fluid collections. There is no midline shift. The skull is intact. The visualized paranasal sinuses are well aerated. There is atherosclerotic change of the cavernous carotid arteries. CT/CT head wo con* [id number] IMPRESSION: No evidence for acute infarct, mass or hemorrhage. Radiation Dose CTDIVOL = (mGy): DLP = 973.27 (mGy-cm)
--- NOTE | 2020-05-15 19:35 | CTR_ITS ---
PROCEDURE INFORMATION: Exam: CT Angiography Chest With Contrast Exam date and time: 05/15/2020 8:05 PM Age: 75 years old Clinical indication: Shortness of breath; Prior surgery; Surgery type: Stents; Additional info: Hypoxia TECHNIQUE: Imaging protocol: Computed tomographic angiography of the chest with intravenous contrast. 3D rendering (Not supervised by radiologist): MIP and/or 3D reconstructed images were created by the technologist. Radiation optimization: All CT scans at this facility use at least one of these dose optimization techniques: automated exposure control; mA and/or kV adjustment per patient size (includes targeted exams where dose is matched to clinical indication); or iterative reconstruction. Contrast material: VISI 320; Contrast volume: 88 ml; Contrast route: INTRAVENOUS (IV); COMPARISON: CT angio chest w abd pel w con 02/27/2020 7:51 PM RADIATION DOSE METRICS: Total DLP (mGy-cm): 629.92 FINDINGS: Pulmonary arteries: No filling defects identified in the pulmonary arteries. Some artery branches in the lower lobes are obscured due to breathing motion artifact. Aorta: Stable mild aneurysmal dilatation of the ascending thoracic aorta measuring 4.4 cm. No dissection. Lungs: Severe centrilobular emphysema. Scarring in the right lung apex. Calcified granuloma in the left upper lobe. Stable subpleural opacities along the bilateral major fissures and in the posterior left lower lobe. Increased consolidation in the posterior right lower lobe. Pleural space: Chronic right pleural thickening and calcifications. Heart: Unremarkable. No cardiomegaly. No pericardial effusion. Lymph nodes: Multiple subcentimeter mediastinal and hilar lymph nodes are most likely reactive. Calcified left hilar lymph nodes. Liver: Calcified granulomas in the liver. Kidneys and ureters: Benign cyst in the right kidney, Hounsfield units less than 20. No follow-up is recommended. Bones/joints: Stable L1 compression fracture. Soft tissues: Unremarkable. CT/CT angio chest PE protcl [id number] IMPRESSION: 1. No evidence for pulmonary embolus. 2. Increased consolidation in the posterior right lower lobe could represent pneumonia or aspiration. 3. Emphysema. COMMENTS: Consistent with the [place] [employer]'s Incidental Findings Committee white paper (J Am Ann-Marie Radiol 2018): Any incidental renal lesion less than 1 cm or classified as too small to characterize, or any incidental cystic renal lesion characterized as simple-appearing, is likely benign. No follow-up imaging is recommended for these lesions per consensus recommendations based on imaging criteria. Radiation Dose CTDIVOL = (mGy): DLP = 629.92 (mGy-cm)
--- NOTE | 2020-05-15 19:37 | ECG_ITS ---
[facility] Test Date: 2020-05-15 Pat Name: Meir Hopson Department: Room: Gender: Male [place]: : 1945 Requested By: Yessy Manuel Order Number: [id number] Michael MD: Laurie Jolly M.D. Measurements Intervals [place] Rate: 82 P: 23 AR: 195 QRS: -18 QRSD: 76 T: 45 QT: 374 QTc: 439 Interpretive Statements SINUS RHYTHM Compared to ECG 02/28/2020 16:40:20 First degree AV block no longer present ST (T wave) deviation no longer present Early repolarization no longer present Electronically Signed On 05-15-2020 20:56:17 CDT by Laurie Jolly M.D. [id number]
[2020-05-15 19:55] LABS: ABG PCO2 32.4 mmHg (35-45); ABG PH Result 7.48 (7.35-7.45); Base Excess ABG 1.2 mmol/L (-2.0-2.0); Blood Gas Allen Test Pos; Blood Gas Sample Type Arterial; HCO3 ABG 24.1 mmol/L (22-26); PO2 ABG 48.3 mmHg (80.0-100.0)
[2020-05-15 19:56] LABS: Blood Gas Operator Identificat HARKR; Blood Gas Sample Site Radial, right; Oxygen Device NC
[2020-05-15 19:56] LABS: Influenza A by IFA Negative (Negative)
[2020-05-15 19:57] LABS: Influenza B by IFA Negative (Negative)
[2020-05-15 20:13] LABS: Troponin(5th) Baseline 13 ng/L (0-15)
[2020-05-15 20:27] LABS: Troponin 5 2HR 13.42 ng/L (0-15); Troponin 5 2HR Delta 0.42 ABS# (0-10)
[2020-05-15] MEDS: iodixanol 320 mg/mL 100mL Btl IV (20:31)
[2020-05-15] MEDS: dexamethasone 10 mg/mL INJ IVP (20:48)
[2020-05-15] MEDS: piperacillin-tazobactam 3.375 GM in sodium chloride 0.9% (plus) 50 ML IV (20:49)
[2020-05-15] MEDS: sodium chloride 0.9% 1,000 ML 100 ML IV (20:49)
--- NOTE | 2020-05-15 21:37 | ECG_ITS ---
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 Measurements Intervals [place] Rate: 84 P: 44 UT: 193 QRS: -15 QRSD: 78 T: 39 QT: 396 QTc: 471 Interpretive Statements SINUS RHYTHM Compared to ECG 05/15/2020 20:05:40 No significant changes Electronically Signed On 05-16-2020 21:39:02 CDT by Laurie Jolly M.D. [id number]
--- NOTE | 2020-05-15 21:54 | PC.NURSE ---
Syl PETERSON collected and taken to lab at 0084
[2020-05-15 22:22] LABS: SARS Covid-2 Antigen Positive (Negative)
[2020-05-15 22:32] LABS: Add Urine Culture? Yes; Bacteria Urine 1+ /hpf; Bilirubin Urine 1+ (Negative); Blood Urine 2+ (Negative); Glucose Urine UA Norm (Normal); Ketones Urine 1+ (Negative); Leukocyte Esterase Urine 2+ (Negative); Nitrate Urine Negative (Negative); Protein Urine Trace (Negative); RBC Urine 0-4 /hpf (0-2); Specific Gravity, Urine 1.002 (1.005-1.030); Squamous Epithelial Cell Urine 0-4 /hpf (0-5); Urine Appearance Clear (CLEAR); Urine Color Yellow (Yellow); Urobilinogen Urine Norm (Negative); WBC Urine >100 /hpf (0-5); pH Urine 5 (5-7)
[2020-05-15] MEDS: succinylcholine 20 mg/mL SDV 10mL 125 MG IVP (23:45)
--- NOTE | 2020-05-15 23:49 | XRR_ITS ---
PROCEDURE INFORMATION: Exam: XR Chest, 1 View Exam date and time: 05/16/2020 12:36 AM Age: 75 years old Clinical indication: Device placement; Ett placement (vent status); Additional info: Post intubation TECHNIQUE: Imaging protocol: XR of the chest Views: 1 view. COMPARISON: CR XR chest 1V portable [id number] 05/15/2020 6:53 PM FINDINGS: Tubes, catheters and devices: Endotracheal tube, tip 4.4 cm above olaf. Lungs: Mild patchy airspace opacities (atelectasis and/or consolidation) in the right lung base, increased from prior study. Mild patchy atelectasis at the left lung base, similar to prior study. Pulmonary vasculature within normal limits. Pleural space: Large pleural plaque in the right mid and lower thorax, similar to prior study. No visible pneumothorax. Mild blunting of the right costophrenic angle, similar prior study. This may represent pleural-parenchymal scarring or a small pleural effusion. Heart/Mediastinum: Heart size within normal limits. Bones/joints: No emergent findings identified. XR/XR chest 1V portable [id number] IMPRESSION: 1. Endotracheal tube, tip 4.4 cm above olaf. 2. Mild patchy airspace opacities (atelectasis and/or consolidation) in the right lung base, increased from prior study.
[2020-05-15] MEDS: LORazepam 2 mg/mL INJ 1 mL IVP (23:50)
[2020-05-16] VITALS: BP 98/62; PULSE 67; RESP 15; O2SAT 87
[2020-05-16 00:26] VITALS: BP 119/74; PULSE 66; RESP 17; O2SAT 100
[2020-05-16 00:39] VITALS: BP 128/64; PULSE 73; RESP 16; O2SAT 99
[2020-05-16] MEDS: propofol 1,000 MG/100 ML INJ 4.9 MG IV (00:52)
--- NOTE | 2020-05-16 00:57 | PC.NURSE ---
0011: propofol stopped and levophed initiated at 4mcg/min.
[2020-05-16 01:06] VITALS: BP 118/72; PULSE 61; RESP 16; O2SAT 99
[2020-05-16 01:22] LABS: ABG PCO2 35.6 mmHg (35-45); ABG PH Result 7.36 (7.35-7.45); Arterial Blood Gas Hematocrit 40.8 % (42-52); Base Excess ABG -4.5 mmol/L (-2.0-2.0); Blood Gas Allen Test Pos; Blood Gas Operator Identificat HARKR; Blood Gas Sample Site Radial, left; Blood Gas Sample Type Arterial; Blood Gas Tidal Volume 0.55; HCO3 ABG 20.2 mmol/L (22-26); Oxygen Device VENT
[2020-05-16 01:30] VITALS: BP 117/73; PULSE 60; RESP 12; O2SAT 97
[2020-05-16 01:38] LABS: Troponin 5 6HR 9.72 ng/L (0-15)
[2020-05-16 01:44] LABS: Troponin 5 6HR Delta -3.28 ng/L (0-12)
[2020-05-16 02:06] VITALS: BP 120/65; PULSE 60; RESP 12; O2SAT 99
== END 2020-05-16 02:35 | disposition short-term general hospital (02) ==
PROVIDERS: Family Medicine; Emergency Provider Emergency Medicine; PCP Family Medicine
DX: U07.1 COVID-19 (principal); A41.9 Sepsis, unspecified organism; N39.0 Urinary tract infection, site not specified; I10 Essential (primary) hypertension; I25.10 Atherosclerotic heart disease of native coronary artery without angina pectoris; E78.5 Hyperlipidemia, unspecified; G20 Parkinson's disease; Z87.891 Personal history of nicotine dependence
CPT/HCPCS: 12345; 31500; 36415; 36600; 51702; 70450; 71045; 71275; 80053; 81001; 82550; 82728; 82803; 83605; 83615; 84145; 84484; 85025; 85378; 85384; 86140; 87040; 87086; 87426; 87804; 93005; 94002; 94799; 96365; 96366; 96367; 96368; 96375; 96376; 99284; 99291; J0330; J1100; J2060; J2543; J2704; J3010; J3490; J7030; Q9967